=== PATIENT | female | born 1975 | race Caucasian/White ===

== ENCOUNTER → 2019-01-22 15:23 | Outpatient (CLI) | payer BC, SELFPAY ==
--- NOTE | 2019-01-22 15:54 | XR_ITS ---
XR chest 2V HISTORY: ITS.REASON: FATIGUE,DYSPNEA ORDERING PHYSICIAN: JIM Kelley PATIENT AGE: 43 years COMPARISON: None FINDINGS: The cardiomediastinal silhouette and pulmonary vascularity are within normal limits. There is a vague nodular opacity noted in the right lung base medially a 14 mm. On the lateral view there are at least 3 nodular opacities present over the anterior aspect of the chest 15 mm, 11 mm, and 8 mm. At least one of these is felt to be in the right middle lobe. Upper lobes are clear. No acute bony findings. IMPRESSION: At least 3 pulmonary nodules are present somewhat ill-defined. Metastatic disease would be considered. Other etiologies would include noncalcified granulomas. There are no previous chest x-rays available for review. Chest CT with contrast suggested.
[2019-01-22 16:23] LABS: Basophils % 0.3 % (0.1-2.0); Eosinophils # 0.1 K/mm3 (0.0-0.4); Eosinophils % 0.6 % (0.1-12.0); Hematocrit 38.8 % (37.0-47.0); Hemoglobin 12.1 g/dL (12.2-16.2); Lymphocytes # 2.8 K/mm3 (0.7-4.5); Lymphocytes % 24.8 % (10-50); Mean Corpuscular HGB Conc 31.1 g/dL (31.8-35.4); Mean Corpuscular Hemoglobin 27.3 pg (27.0-31.2); Mean Corpuscular Volume 87.6 fl (81-99); Mean Platelet Volume 6.8 fl (7.4-10.4); Monocytes # 1.9 K/mm3 (0.1-1.0); Monocytes % 17.5 % (1.7-9.3); Neutrophils # 6.3 K/mm3 (1.8-7.8); Neutrophils % 56.7 % (37.0-80.0); Platelet Count 415 K/mm3 (142-424); Red Blood Count 4.42 M/mm3 (4.20-5.40); Red Cell Distribution Width 12.9 % (11.5-17.5); White Blood Count 11.1 K/mm3 (4.8-10.8)
[2019-01-22 17:37] LABS: Alanine Aminotransferase 44 U/L (12-78); Alkaline Phosphatase 63 U/L (46-116); Anion Gap 15.6 mEq/L (5-15); Aspartate Amino Transferase 30 U/L (15-37); Bilirubin,Total 0.3 mg/dL (0.2-1.0); Blood Urea Nitrogen 17 mg/dL (7-18); Calcium 9.8 mg/dL (8.5-10.1); Carbon Dioxide 27 mmol/L (21.0-32.0); Chloride 101 mmol/L (98-107); Estimated Glomerular Filt Rate 109 ml/min (>60); GFR (African American) 131 ML/MIN (>60); Glucose 81 mg/dL (74-106); Potassium 4.6 mmoL/L (3.5-5.1); Sodium 139 mmol/L (136-145)
== END ==
PROVIDERS: PCP Internal Medicine Adolescent Medicine; Visit Provider Physician Assistant Medical
DX: R53.83 Other fatigue (principal); R06.00 Dyspnea, unspecified
CPT/HCPCS: 36415; 71046; 80053; 85025; 93005

== ENCOUNTER → 2019-01-27 10:09 | Outpatient (CLI) | payer BC, SELFPAY ==
--- NOTE | 2019-01-27 10:27 | CT_ITS ---
CT chest w con HISTORY: ITS.REASON: PULMONARY NODULE ORDERING PHYSICIAN: Peyman Mcdaniel MD PATIENT AGE: 43 years COMPARISON: 01/22/2019. TECHNIQUE: Axial images obtained following the administration of 75 mL of Optiray 350 . Sagittal, and coronal reformatted images are also generated and reviewed. All CT scans at the facility use one or more dose reduction, viz: automated exposure control, ma/kV adjustment per patient size (including targeted exams where dose is matched to indication, i.e. head), or iterative reconstruction technique. FINDINGS: PULMONARY ARTERIES:No pulmonary embolus evident. AORTA:No acute finding. No thoracic aortic aneurysm or dissection evident LUNGS:There are some right lung nodules. The largest in the anterior aspect of the right middle lobe is 8.7 mm and is calcified. There is another medial segment right middle lobe nodule measuring approximately millimeters and is also calcified. The smallest nodule at the anterior segment of the right upper lobe is 5 mm and calcified as well. There is no definite noncalcified nodule. Also noted is a punctate 4 mm, nodule in the right apex. The remainder of the lung soto are clear. PLEURAL SPACES:No significant effusion. No evidence of pneumothorax. HEART:Unremarkable. Normal heart size. No significant pericardial effusion. MEDIASTINAL AND HILAR STRUCTURES:No mediastinal or hilar mass evident. No dominant adenopathy. BONY STRUCTURES:No acute bony abnormalities apparent LYMPH NODES:No enlarged lymph nodes evident UPPER ABDOMEN:Unremarkable IMPRESSION: The multiple right lung nodules as discussed above are calcified indicating benign granulomas.
== END ==
PROVIDERS: PCP Internal Medicine Adolescent Medicine; Visit Provider Internal Medicine Adolescent Medicine
DX: R91.1 Solitary pulmonary nodule (principal)
CPT/HCPCS: 71260

== ENCOUNTER → 2019-02-05 07:10 | Outpatient (CLI) | payer BC, SELFPAY ==
[2019-02-05 14:20] LABS: Basophils % 0.4 % (0.1-2.0); Eosinophils # 0.1 K/mm3 (0.0-0.4); Eosinophils % 1.4 % (0.1-12.0); Hematocrit 39.9 % (37.0-47.0); Hemoglobin 12.3 g/dL (12.2-16.2); Lymphocytes # 2.1 K/mm3 (0.7-4.5); Lymphocytes % 29.6 % (10-50); Mean Corpuscular Hemoglobin 28.5 pg (27.0-31.2); Mean Platelet Volume 9.6 fl (7.4-10.4); Monocytes # 1.5 K/mm3 (0.1-1.0); Monocytes % 20.8 % (1.7-9.3); Neutrophils # 3.4 K/mm3 (1.8-7.8); Neutrophils % 47.8 % (37.0-80.0); Platelet Count 413 K/mm3 (142-424); Red Blood Count 4.34 M/mm3 (4.20-5.40); Red Cell Distribution Width 13.3 % (11.5-17.5); White Blood Count 7.2 K/mm3 (4.8-10.8)
[2019-02-05 14:24] LABS: MANUAL DIFFERENTIAL MANUAL DIFFERENTIAL (MANUAL DIFF)
[2019-02-05 14:52] LABS: Alanine Aminotransferase 43 U/L (12-78); Albumin Level 3.7 gm/dL (3.4-5.0); Alkaline Phosphatase 57 U/L (46-116); Anion Gap 13.1 mEq/L (5-15); Aspartate Amino Transferase 25 U/L (15-37); Bilirubin,Total 0.2 mg/dL (0.2-1.0); Blood Urea Nitrogen 23 mg/dL (7-18); Calcium 8.9 mg/dL (8.5-10.1); Carbon Dioxide 27 mmol/L (21.0-32.0); Chloride 105 mmol/L (98-107); Creatinine,Serum 0.74 mg/dL (0.55-1.02); Estimated Glomerular Filt Rate 85 ml/min (>60); GFR (African American) 103 ML/MIN (>60); Globulin 3.8 gm/dl (1.3-3.2); Glucose 87 mg/dL (74-106); Potassium 4.1 mmoL/L (3.5-5.1); Sodium 141 mmol/L (136-145); Total Protein,Serum 7.5 gm/dL (6.4-8.2)
[2019-02-05 16:37] LABS: Eosinophils % 1 % (0-3); Lymphocytes % 39 % (10-50); Monocytes % 20 % (2-9); Neutrophils % 40 % (42-76); Platelet Estimate Normal; Total Cells Counted 100
== END ==
PROVIDERS: PCP Internal Medicine Adolescent Medicine; Visit Provider Physician Assistant Medical
DX: R06.00 Dyspnea, unspecified (principal); R53.83 Other fatigue
CPT/HCPCS: 36415; 80053; 85007; 85025

== ENCOUNTER → 2019-10-24 10:44 | Outpatient (CLI) | payer BC, SELFPAY ==
--- NOTE | 2019-10-24 10:52 | MM_ITS ---
PROCEDURE: MM DIG SCREENING MAMM BI W/CAD Digital Breast Tomosynthesis Included CLINICAL INDICATION: SCREENING COMPARISON: PB MAMM SCREEN BILAT DIG PNL from 11/21/2013 PB MAMM SCREEN BILAT DIG PNL from 01/12/2015 DMSB DIG MAMM-SCREEN CANDIE W/CAD from 02/14/2017 TECHNIQUE: Standard CC and MLO images and 3D Tomosynthesis was obtained. R2 CAD reviewed. FINDINGS: Average fibroglandular tissue. Benign-appearing calcifications are present. No malignant appearing mass or malignant-appearing microcalcification. IMPRESSION: BI-RAD Category: 2 Benign Finding(s) FOLLOW-UP: 1YR 1 Year Follow-up (A letter has been sent to the patient regarding results of the study.) Dictated by: Antonio Fernandez MD 10/24/2019 18:04 Electronically signed by Antonio Fernandez MD in [place] 10/24/2019 18:04
== END ==
PROVIDERS: PCP Internal Medicine Adolescent Medicine; Visit Provider Internal Medicine Adolescent Medicine
DX: Z12.31 Encounter for screening mammogram for malignant neoplasm of breast (principal)
CPT/HCPCS: 77063; 77067

== ENCOUNTER → 2020-12-31 07:12 | Outpatient (CLI) | payer BC, SELFPAY ==
[2020-12-31 14:12] LABS: Basophils # 0.1 K/mm3 (0-0.2); Basophils % 1.5 % (0.1-2.0); Eosinophils # 0.1 K/mm3 (0.0-0.4); Eosinophils % 0.9 % (0.1-12.0); Hematocrit 37.4 % (37.0-47.0); Hemoglobin 11.8 g/dL (12.2-16.2); Lymphocytes # 2.3 K/mm3 (0.7-4.5); Lymphocytes % 35.3 % (10-50); Mean Corpuscular HGB Conc 31.5 g/dL (31.8-35.4); Mean Corpuscular Hemoglobin 28.8 pg (27.0-31.2); Mean Corpuscular Volume 91.3 fl (81-99); Monocytes # 1.3 K/mm3 (0.1-1.0); Monocytes % 20.3 % (1.7-9.3); Neutrophils # 2.7 K/mm3 (1.8-7.8); Neutrophils % 42.1 % (37.0-80.0); Platelet Count 324 K/mm3 (142-424); Red Cell Distribution Width 12.7 % (11.5-17.5); White Blood Count 6.5 K/mm3 (4.8-10.8)
[2020-12-31 14:25] LABS: MANUAL DIFFERENTIAL MANUAL DIFFERENTIAL (MANUAL DIFF)
[2020-12-31 14:32] LABS: Chloride 104 mmol/L (98-107); Potassium 4.3 mmoL/L (3.5-5.1); Sodium 139 mmol/L (136-145)
[2020-12-31 14:34] LABS: Lymphocytes % 39 % (10-50); Monocytes % 18 % (2-9); Neutrophils % 43 % (42-76); Total Cells Counted 100
[2020-12-31 14:35] LABS: Alanine Aminotransferase 19 U/L (12-78); Albumin Level 4.5 g/dl (3.5-5.0); Albumin/Globulin Ratio 1.4 (1.1-1.8); Alkaline Phosphatase 60 U/L (38-126); Anion Gap 10.3 mEq/L (5-15); Aspartate Amino Transferase 29 U/L (14-36); Bilirubin,Total 0.2 mg/dl (0.2-1.3); Blood Urea Nitrogen 16 mg/dl (7-17); Calcium 9.2 mg/dl (8.4-10.2); Carbon Dioxide 29 mmol/L (22.0-30.0); Estimated Glomerular Filt Rate 108 ml/min (>60); GFR (African American) 130 ML/MIN (>60); Globulin 3.3 g/dL (1.3-3.2); Glucose 80 mg/dl (74-100); Iron 74 ug/dL (37-170); Platelet Estimate Normal; RBC Morphology Normal; Total Protein,Serum 7.8 g/dl (6.3-8.2)
[2020-12-31 15:05] LABS: Thyroid Stimulating Hormone 1.23 uIU/mL (0.465-4.68)
[2020-12-31 15:08] LABS: 25-OH Vitamin D, Total 32.6 ng/mL (30-100)
[2020-12-31 15:09] LABS: Ferritin 19.2 ng/ml (6.24-137)
[2021-01-01 05:28] LABS: Prealbumin 18 mg/dL (12-34)
[2021-01-07 00:08] LABS: Vitamin B1 135.6 nmol/L (66.5-200.0)
[2021-01-11 05:19] LABS: Methylmalonic Acid 149 nmol/L (0-378)
== END ==
PROVIDERS: Visit Provider Physician Assistant Medical
DX: R53.83 Other fatigue (principal); R79.0 Abnormal level of blood mineral; E55.9 Vitamin D deficiency, unspecified
CPT/HCPCS: 36415; 80053; 82131; 82306; 82728; 82746; 83540; 84134; 84425; 84443; 85007; 85025

== ENCOUNTER → 2022-03-01 09:59 | Outpatient (CLI) | payer BC, SELFPAY ==
--- NOTE | 2022-03-01 10:05 | MM_ITS ---
PROCEDURE INFORMATION: Exam: MG Bilateral Screening 3D Mammography Exam date and time: 03/01/2022 10:01 AM Age: 47 years old Clinical indication: Screening examination. Strong family history of premenopausal breast carcinoma. TECHNIQUE: Imaging protocol: Bilateral Screening tomosynthesis and 2D mammography including computer-aided detection (CAD) when performed. COMPARISON: 1. MG MM DIG SCREENING MAMM BI W/CAD 10/24/2019 11:24 AM 2. MG DMSB DIG MAMM-SCREEN CANDIE W/CAD 02/14/2017 10:54 AM FINDINGS: MAMMOGRAPHY: Breast composition: There are scattered areas of fibroglandular density. Mass: No suspicious masses. Architectural distortion: No suspicious distortion. Calcifications: No suspicious calcifications. Asymmetric density: Questionable 1 cm asymmetry in the retroareolar left breast, best seen on MLO frame 24. Finding may represent summation artifact. Skin thickening: None. Axillary adenopathy: None. IMPRESSION: 1. Recommend left breast spot compression CC/MLO view and ultrasound for further evaluation of a questionable asymmetry in the retroareolar left breast. 2. No definite mammographic evidence of malignancy in the right breast. 3. Given the reported risk factors for this patient, a breast cancer risk assessment may prove useful for further evaluation. ASSESSMENT: BI-RADS Category 0: Incomplete- Need Additional Imaging Evaluation and/or Prior Mammograms for Comparison
== END ==
PROVIDERS: PCP Internal Medicine Adolescent Medicine; Visit Provider Nurse Practitioner Family
DX: Z12.31 Encounter for screening mammogram for malignant neoplasm of breast (principal)
CPT/HCPCS: 77063; 77067

== ENCOUNTER → 2022-03-13 15:29 | Outpatient (CLI) | payer BC, SELFPAY ==
--- NOTE | 2022-03-13 15:34 | MM_ITS ---
PROCEDURE INFORMATION: Exam: US Left Breast, Complete MG Left Diagnostic Breast Tomosynthesis Exam date and time: 03/13/2022 3:36 PM Age: 47 years old Clinical indication: Patient recalled on the basis of a screening mammogram for further evaluation; Left breast; asymmetry TECHNIQUE: Imaging protocol: Complete ultrasound of all four quadrants of the Left breast and the retroareolar regions, including ultrasound of the axilla when performed. Left Diagnostic tomosynthesis and 2D mammography including computer-aided detection (CAD) when performed. Unilateral or bilateral exam. COMPARISON: 1. MG MM DIG SCREENING MAMM BI W/CAD 03/01/2022 10:01 AM 2. MG MM DIG SCREENING MAMM BI W/CAD 10/24/2019 11:24 AM FINDINGS: MAMMOGRAPHY: Digital diagnostic spot compression views of the left breast demonstrate normal overlapping fibroglandular structures without persistent mass or asymmetry identified. ULTRASOUND: Sonographic images of the left breast including the retroareolar region, all 4 quadrants and the axilla do not demonstrate any solid or cystic masses. No architectural distortion or acoustical shadowing. No skin thickening or axillary adenopathy. IMPRESSION: No mammographic or sonographic evidence of malignancy. Annual bilateral mammographic screening is recommended unless otherwise clinically indicated. ASSESSMENT: BI-RADS Category 1: Negative
== END ==
PROVIDERS: PCP Internal Medicine Adolescent Medicine; Visit Provider Nurse Practitioner Family
DX: R92.8 Other abnormal and inconclusive findings on diagnostic imaging of breast (principal)
CPT/HCPCS: 76641; 77061; 77065; G0279

== ENCOUNTER → 2023-06-18 15:59 | Outpatient (CLI) | payer BC, SELFPAY ==
--- NOTE | 2023-06-18 16:00 | MM_ITS ---
PROCEDURE INFORMATION: Exam: MG Bilateral Screening 3D Mammography Exam date and time: 06/18/2023 4:00 PM Age: 48 years old Clinical indication: Screening examination TECHNIQUE: Imaging protocol: Bilateral Screening tomosynthesis and 2D mammography including computer-aided detection (CAD) when performed. COMPARISON: 1. MG MM DIG MAMM DX UNILAT LT CAD 03/13/2022 3:36 PM 2. MG MM DIG SCREENING MAMM BI W/CAD 03/01/2022 10:01 AM FINDINGS: MAMMOGRAPHY: Breast composition: There are scattered areas of fibroglandular density. Mass: None. Architectural distortion: None. Calcifications: No suspicious calcifications. Asymmetric density: None. Skin thickening: None. Axillary adenopathy: None. IMPRESSION: No mammographic evidence of malignancy. Annual screening is recommended unless otherwise clinically indicated. ASSESSMENT: BI-RADS Category 1: Negative
== END ==
PROVIDERS: PCP Family Medicine; Visit Provider Family Medicine
DX: Z12.31 Encounter for screening mammogram for malignant neoplasm of breast (principal)
CPT/HCPCS: 77063; 77067

== ENCOUNTER → 2023-06-27 23:30 | Outpatient (CLI) | payer BC, SELFPAY | LOC: LAB.DROPOF 23:31 | PROVIDERS: PCP Family Medicine; Visit Provider Family Medicine | DX: Z90.3 Acquired absence of stomach [part of] (principal); R71.8 Other abnormality of red blood cells; R74.01 Elevation of levels of liver transaminase levels; Z79.899 Other long term (current) drug therapy | CPT/HCPCS: 80053; 80061; 84443; 85007; 85025 ==

== ENCOUNTER 2023-10-19 16:43 | Outpatient (CLI) | payer BC, SELFPAY ==
[2023-10-19 16:33] LABS: Basophils # 0.1 K/mm3 (0-0.2); Basophils % 1.1 % (0.1-2.0); Eosinophils % 0.8 % (0.1-12.0); Hematocrit 38.8 % (37.0-47.0); Hemoglobin 12.4 g/dL (12.2-16.2); Lymphocytes # 2.1 K/mm3 (0.7-4.5); Lymphocytes % 37.2 % (10-50); Mean Corpuscular HGB Conc 31.9 g/dL (31.8-35.4); Mean Corpuscular Hemoglobin 30.5 pg (27.0-31.2); Mean Corpuscular Volume 95.6 fl (81-99); Mean Platelet Volume 9.3 fl (7.4-10.4); Monocytes # 1.3 K/mm3 (0.1-1.0); Monocytes % 22.7 % (1.7-9.3); Neutrophils # 2.2 K/mm3 (1.8-7.8); Neutrophils % 38.3 % (37.0-80.0); Platelet Count 283 K/mm3 (142-424); Red Blood Count 4.06 M/mm3 (4.20-5.40); Red Cell Distribution Width 13.3 % (11.5-17.5); White Blood Count 5.6 K/mm3 (4.8-10.8)
[2023-10-19 16:36] LABS: MANUAL DIFFERENTIAL MANUAL DIFFERENTIAL (MANUAL DIFF)
[2023-10-19 16:58] LABS: Alanine Aminotransferase 39 U/L (12-78); Albumin Level 4.6 g/dl (3.5-5.0); Albumin/Globulin Ratio 1.5 (1.1-1.8); Alkaline Phosphatase 54 U/L (38-126); Anion Gap 11.2 mEq/L (5-15); Aspartate Amino Transferase 45 U/L (14-36); Bilirubin,Total 0.4 mg/dl (0.2-1.3); Blood Urea Nitrogen 17 mg/dl (7-17); Calcium 9.4 mg/dl (8.4-10.2); Carbon Dioxide 27 mmol/L (22.0-30.0); Chloride 107 mmol/L (98-107); Chol/HDL Ratio 4.1 (1-3.5); Cholesterol 173 mg/dl (140-200); Estimated Glomerular Filt Rate 89 ml/min (>60); GFR (African American) 108 ML/MIN (>60); Globulin 3.1 g/dL (1.3-3.2); Glucose 86 mg/dl (74-100); HDL Cholesterol 42 mg/dl (40-60); Potassium 4.2 mmoL/L (3.5-5.1); Sodium 141 mmol/L (136-145); Total Protein,Serum 7.7 g/dl (6.3-8.2); Triglycerides 63 mg/dl (30-150); VLDL Cholesterol 13 mg/dL (0-40)
[2023-10-19 17:09] LABS: Direct LDL Cholesterol 86.32 mg/dL (100-129)
[2023-10-19 17:28] LABS: Thyroid Stimulating Hormone 0.59 uIU/mL (0.465-4.68)
[2023-10-19 18:24] LABS: Hemoglobin A1C 5.3 % (4.0-6.0)
[2023-10-19 19:01] LABS: Eosinophils % 1 % (0-3); Lymphocytes % 43 % (10-50); Monocytes % 13 % (2-9); Neutrophils % 42 % (42-76); Platelet Estimate Normal; RBC Morphology Normal; Total Cells Counted 100
== END 2023-10-19 23:59 ==
LOC: LAB.DROPOF 16:43
PROVIDERS: PCP Nurse Practitioner Family; Visit Provider Nurse Practitioner Family
DX: Z00.00 Encounter for general adult medical examination without abnormal findings (principal); Z79.899 Other long term (current) drug therapy
CPT/HCPCS: 80053; 80061; 82306; 83036; 84443; 85007; 85025

== ENCOUNTER 2024-03-13 12:29 | Outpatient (CLI) | payer BC, SELFPAY ==
--- NOTE | 2024-03-13 12:38 | XR_ITS ---
FINAL REPORT CLINICAL HISTORY: Right foot pain COMPARISON: None FINDINGS: RIGHT FOOT 3 views of the right foot were obtained. There is no acute fracture or dislocation. Visualized joint spaces are normally aligned. Soft tissues are unremarkable. IMPRESSION: No acute bony abnormality. Reviewed, Interpreted and Dictated by Sukumar Correia III, MD Transcribed by Winnie Cerna Authenticated and [facility]
== END 2024-03-13 23:59 | disposition home or self-care (01) ==
LOC: RAD 12:30
PROVIDERS: PCP Family Medicine; Visit Provider Nurse Practitioner Family
DX: M79.671 Pain in right foot (principal)
CPT/HCPCS: 73630

== ENCOUNTER 2024-07-14 14:57 | Outpatient (CLI) | payer BC, SELFPAY ==
--- NOTE | 2024-07-14 14:58 | MM_ITS ---
PROCEDURE INFORMATION: Exam: MG Bilateral Screening 3D Mammography Exam date and time: 07/14/2024 2:56 PM Age: 49 years old Clinical indication: Screening examination. TECHNIQUE: Imaging protocol: Bilateral Screening tomosynthesis and 2D mammography including computer-aided detection (CAD) when performed. Other technique: Original mislabeling of the left breast images was corrected on 07/17/2024. COMPARISON: 1. MG MM DIG SCREENING MAMM BI W/CAD 06/18/2023 4:00 PM 2. MG MM DIG MAMM DX UNILAT LT CAD 03/13/2022 3:36 PM FINDINGS: MAMMOGRAPHY: Breast composition: There are scattered areas of fibroglandular density. Mass: None. Architectural distortion: None. Calcifications: No suspicious calcifications. Asymmetric density: None. Skin thickening: None. Axillary adenopathy: None. IMPRESSION: No mammographic evidence of malignancy. Annual screening is recommended unless otherwise clinically indicated. ASSESSMENT: BI-RADS Category 1: Negative.
== END 2024-07-14 23:59 | disposition home or self-care (01) ==
LOC: RAD 14:58
PROVIDERS: PCP Family Medicine; Visit Provider Family Medicine
DX: Z12.31 Encounter for screening mammogram for malignant neoplasm of breast (principal)
CPT/HCPCS: 77063; 77067

== ENCOUNTER 2024-07-27 14:03 | Emergency (ER) | payer BC, SELFPAY ==
[2024-07-27 15:27] VITALS: BP 125/74; PULSE 71; RESP 17; TEMP 36.9; O2SAT 98; BMI 28.1
[2024-07-27 15:50] LABS: UTC Influenza A Antigen Negative (Negative); UTC Influenza B Antigen Negative (Negative); UTC Strep Screen (Rapid) Negative (Negative)
--- NOTE | 2024-07-27 15:59 | EXP.UTC ---
Discharge Plan Disposition Patient Disposition: Home, Self-Care Condition: Good Prescriptions Prescriptions: No Action Wegovy 2.4 mg/0.75 mL pen injector 2.4 mg SQ WEEKLY Patient Comments: INJECT 2.4 MG UNDER THE SKIN INTO THE APPROPRIATE AREA DIRECTED 1 (ONE) TIME PER WEEK. topiramate 25 mg tablet 25 mg PO DAILY Patient Comments: TAKE TWO TABLETS DAILY AT BEDTIME. cetirizine 10 mg tablet 10 mg PO DAILY PRN (Reason: ALLERGIES) Centrum Silver Women 8 mg iron-400 mcg-50 mcg tablet 1 tab PO DAILY paroxetine HCl 10 mg tablet 10 mg PO DAILY Patient Comments: TAKE ONE TABLET BY MOUTH ONCE DAILY trazodone 100 mg tablet 100 mg PO HSP PRN (Reason: Insomnia) Patient Comments: TAKE ONE TABLET BY MOUTH EVERY DAY NEEDED FOR insomnia AT bedtime Referrals Follow up/Referrals: Gabo Mo MD [Primary Care Provider] - See instructions Activity Restrictions/Add. Instructions Additional Instructions/Restrictions: *Monitor Temp, Over the counter Motrin or Tylenol as directed/as needed Tylenol every 4 hours and Motrin every 6 hours (as long as your family doctor has told you that you can take it) for fever or pain. and straight to ER if unable to lower temp less than 101.0 after medication given *Warm salt water gargles may help to soothe the throat *Throat Lozenges? *Warm fluids like tea with honey may help to soothe the throat? *Sleep elevated *Humidifier/Vaporizer Your throat swab was sent for culture. Those results are typically sent to your primary care. Be sure to follow up in 2-3 days with your family doctor/primary care physician if no improvement so they can review those result and treat if necessary. If you don?t have a primary care doctor, I recommend you get one but in the mean time, you will have to return to a walk in clinic Follow up IMMEDIATELY for new or worsening symptoms or no Noticeable improvement over the next 48-72 hours. 911 for difficulty breathing or swallowing Clinical Impressions Clinical Impression: Upper respiratory infection Instructions Patient Instructions: Sore Throat, DI for Nasal Congestion Print Language Print Language: Setswana Discharge ED Provider: Polly Iyer [facility] – [place], [place] HPI General Stated complaint: sore throat, ear pain Mode of Arrival: Ambulatory Source of Information: Patient Limitations: No Limitations Time Seen by Provider: 07/27/24 15:59 Description of Symptoms (Recalled from Triage Doc. by RN): PATIENT C/O EAR PAIN, SORE THROAT, FEELING TIRED, AND BODY ACHES X 2 DAYS HEENT Symptoms (Recalled from RN notes): Yes Resp Symptoms (Recalled from RN notes): No Skin Symptoms (Recalled from RN notes): No MS Symptoms (Recalled from RN notes): No Functional Status (Recalled from RN notes): WNL History of Present Illness Provider Complaint: Patient states that she started feeling bad on Sunday States that she has been having pain and pressure in her ears, sore throat, body aches chills and over all not feeling well States today she was still not feeling any better worried that she may have strep throat or COVID Related Data Home Medications ?Medication ?Instructions ?Recorded ?Confirmed cetirizine 10 mg tablet 10 mg PO DAILY PRN ALLERGIES 05/21/23 07/27/24 [id number] 8 mg-folic 400 1 tab PO DAILY 05/21/23 07/27/24 mcg-K 50 mcg-lutein 300 mcg tablet (Centrum Silver Women) semaglutide (weight loss) 2.4 2.4 mg SQ WEEKLY Weight loss 05/21/23 07/27/24 mg/0.75 mL subcutaneous pen injector (Wegovy) topiramate 25 mg tablet 25 mg PO DAILY 05/21/23 07/27/24 paroxetine HCl 10 mg tablet 10 mg PO DAILY 07/27/24 07/27/24 trazodone 100 mg tablet 100 mg PO HSP PRN Insomnia 07/27/24 07/27/24 Allergies Allergy/AdvReac Type Severity Reaction Status Date / Time No Known Allergies Allergy Verified 03/13/24 11:28 Worker's Comp Is this a Worker's Comp case?: No [facility] Disclaimer: The information contained in this section may have been updated after the patient was seen, as this information can be updated by other users. Medical History Grade 2 ankle sprain Abrasion Acute bronchitis Surgical History History of cholecystectomy History of placement of ear tubes H/O sinus surgery H/O gastric sleeve Family History Mother Cancer Father Coronary artery disease Heart attack Social History Smoking Status: Never smoker second hand exposure: No alcohol intake: current alcohol intake frequency: holidays/special occasions only counseling provided: none substance use type: denies use current occupational status: employed Travel in the last 8 weeks: Inside the [place] household members: family housing: house caffeine: Yes Have you lived/traveled outside [place] in past 30 days?: No Contact w/someone who lives/traveled outside [place] past 30 days?: No Exposure to someone with infectious disease in past 14 days?: No Do you have a fever (greater than 100.4 F or 38 C)?: No Have you tested positive for COVID-19: No Exposed to someone with COVID-19 in past 14 days?: No Do you have a sore throat?: No Do you have a cough?: No Do you have any weakness?: No Do you have any diarrhea?: No Are you experiencing any unusual bleeding?: No Do you have any muscle aches/pain?: No Do you have any abdominal pain?: No Are you experiencing loss of taste or smell?: No ROS Obtained: Yes All systems reviewed & no additional complaints except as documented and Yes Systems reviewed as appropriate & no additional complaints except as documented Constitutional Constitutional: Reports system reviewed and no additional complaints, except as documented, Reports as per HPI, Reports body ache, Reports chills and Reports fatigue ENT Ears, Nose, Mouth, and Throat: Reports system reviewed and no additional complaints, except as documented, Reports otalgia, Reports nasal congestion and Reports sore throat Cardiovascular Cardiovascular: Reports system reviewed and no additional complaints, except as documented and Reports as per HPI Respiratory Respiratory: Reports system reviewed and no additional complaints, except as documented and Reports as per HPI Gastrointestinal Gastrointestingal: Reports system reviewed and no additional complaints, except as documented and as per HPI Endocrine Endocrine: Reports fatigue Physical Exam General General appearance: alert and in no apparent distress ENT ENT exam: Present mucous membranes moist and TM's normal bilaterally Expanded ENT Exam Nose exam: Absent sinus tenderness Throat exam: Present normal inspection Chest Chest inspection: Present normal inspection and symmetric chest wall rise; Absent tenderness Respiratory Respiratory exam: Present normal lung sounds bilaterally; Absent respiratory distress or wheezes Cardiovascular Cardiovascular exam: Present regular rate, normal rhythm and normal heart sounds Neurological Exam Neurological exam: Present alert, oriented X3 and normal gait Medical Decision Making Medical Records Screening: Per USPSTF and CDC recommendations, given the prevalence of disease in our region, it is our hospital?s policy to screen for HIV and viral Hepatitis for all patients aged 18 and over and those with ongoing risk factors. Veto Inquiry Pt receiving controlled substance: No Veto was queried for this patient: No Vital Signs: 07/27/24 15:27 Temperature 98.5 F Temperature Source Oral Pulse Rate [Left Brachial] 71 Respiratory Rate 17 Blood Pressure [Left Arm] 125/74 Blood Pressure Mean [Left Arm] 91 Blood Pressure Source [Left Arm] Automatic Cuff Blood Pressure Position [Left Arm] Sitting 02 Sat by Pulse Oximetry 98 Oxygen Delivery Method Room Air Lab Data Lab results reviewed: Yes I reviewed the patient's lab results. Lab Results 07/27/24 15:27: Influenza Type A Ag Negative, Influenza Type B Ag Negative, Strep Scn Rapid Clinic Negative Orders (Tests/Meds): ORDERS Category Date Time Status Strep Screen Confirmation Stat Micro 07/27/24 15:27 Received
[2024-07-27 16:08] VITALS: BP 125/74; PULSE 71; RESP 17; TEMP 36.9; O2SAT 98
== END 2024-07-27 16:09 | disposition home or self-care (01) ==
PROVIDERS: Emergency Provider Nurse Practitioner Family; PCP Family Medicine
DX: J06.9 Acute upper respiratory infection, unspecified (principal)
CPT/HCPCS: 87804; 87880; 99213; G0381

== ENCOUNTER 2024-08-26 22:56 | Emergency (ER) | payer BC, SELFPAY ==
[2024-08-26 22:55] VITALS: BP 146/80; PULSE 80; RESP 18; TEMP 36.7; O2SAT 97; BMI 24.2
--- NOTE | 2024-08-26 23:14 | ED_ITS ---
Discharge Plan Disposition Patient Disposition: Home, Self-Care Condition: Good Prescriptions Prescriptions: No Action Wegovy 2.4 mg/0.75 mL pen injector 2.4 mg SQ WEEKLY Patient Comments: INJECT 2.4 MG UNDER THE SKIN INTO THE APPROPRIATE AREA DIRECTED 1 (ONE) TIME PER WEEK. topiramate 25 mg tablet 25 mg PO DAILY Patient Comments: TAKE TWO TABLETS DAILY AT BEDTIME. cetirizine 10 mg tablet 10 mg PO DAILY PRN (Reason: ALLERGIES) Centrum Silver Women 8 mg iron-400 mcg-50 mcg tablet 1 tab PO DAILY paroxetine HCl 10 mg tablet 10 mg PO DAILY Patient Comments: TAKE ONE TABLET BY MOUTH ONCE DAILY trazodone 100 mg tablet 100 mg PO HSP PRN (Reason: Insomnia) Patient Comments: TAKE ONE TABLET BY MOUTH EVERY DAY NEEDED FOR insomnia AT bedtime Activity Restrictions/Add. Instructions Additional Instructions/Restrictions: Call your family doctor to establish care for this visit to the emergency department and schedule follow-up within 48 hours to ensure improvement. If you have any worsening of your condition or any other concerning signs or symptoms, return to the emergency department or your primary care doctor for further evaluation. Take Tylenol 1000 mg every 6 hours (4 times daily) and ibuprofen 400 mg every 6 hours (4 times daily) as needed with food and water to prevent GI upset and kidney damage. Clinical Impressions Clinical Impression: Facial laceration Print Language Print Language: [place] Islander Discharge ED Provider: Salvatore Gee General Adult HPI General Chief complaint: Fall Stated complaint: fall Time Seen by Provider: 08/26/24 23:00 Mode of Arrival: EMS Source of Information: Patient Limitations: No Limitations Description of Symptoms (Recalled from ER Triage Doc. by RN): Patient presents to ED via [facility] after a fall at home. Patient was walking upstairs and fell and hit head head. Patient denies LOC. Patient rates pain 6/10. History of Present Illness HPI narrative: Please note that above description of symptoms, in this electronic medical record under categorization of recalled from ER triage doctor by RN are reflective of an initial nursing assessment, however, is not reflective of my full history and physical exam that was personally taken and clarified. Consequentially, this preceding description of symptoms, which may include the patient's categorized chief complaint in the EMR, do not reflect my personal clinical impression, and the ultimate description of history of present illness and patient stated complaints should be deferred to this section of the note. Unless stated otherwise or congruent with this section of the note, additional signs, symptoms, or incongruence should be interpreted as inaccurate with my clinical impression. Related Data Home Medications ?Medication ?Instructions ?Recorded ?Confirmed cetirizine 10 mg tablet 10 mg PO DAILY PRN ALLERGIES 05/21/23 07/27/24 ulfyofwe-bybm-kksa 8 mg-folic 400 1 tab PO DAILY 05/21/23 07/27/24 mcg-K 50 mcg-lutein 300 mcg tablet (Centrum Silver Women) semaglutide (weight loss) 2.4 2.4 mg SQ WEEKLY Weight loss 05/21/23 07/27/24 mg/0.75 mL subcutaneous pen injector ([employer]) topiramate 25 mg tablet 25 mg PO DAILY 05/21/23 07/27/24 paroxetine HCl 10 mg tablet 10 mg PO DAILY 07/27/24 07/27/24 trazodone 100 mg tablet 100 mg PO HSP PRN Insomnia 07/27/24 07/27/24 Allergies Allergy/AdvReac Type Severity Reaction Status Date / Time No Known Allergies Allergy Verified 03/13/24 11:28 [facility] Disclaimer: The information contained in this section may have been updated after the patient was seen, as this information can be updated by other users. Medical History Grade 2 ankle sprain Abrasion Acute bronchitis Surgical History History of cholecystectomy History of placement of ear tubes H/O sinus surgery H/O gastric sleeve Family History Mother Cancer Father Coronary artery disease Heart attack Social History Smoking Status: Never smoker second hand exposure: No alcohol intake: current alcohol intake frequency: holidays/special occasions only counseling provided: none substance use type: denies use current occupational status: employed Travel in the last 8 weeks: Inside the [place] household members: family housing: house caffeine: Yes Other Medical History Have you received the Flu Vaccine for this season: Yes Have you received the Pneumonia Vaccine: No ROS Obtained: Yes All systems reviewed & no additional complaints except as documented Physical Exam General General appearance: alert Head Head exam: atraumatic and normocephalic Eye Eye exam: Present normal appearance, PERRL and EOMI Neck Neck exam: Present normal inspection, full ROM and trachea midline Respiratory Respiratory exam: Absent respiratory distress, wheezes, stridor, accessory muscle use or prolonged expiratory phase Cardiovascular Cardiovascular exam: Present other (Pulses equal symmetric in upper and lower extremities) Abdominal Exam Abdominal exam: Present soft; Absent distention, tenderness or pulsatile mass Extremities Exam Extremities exam: Absent edema Neurological Exam Neurological exam: Present alert, oriented X3 and CN II-XII intact; Absent motor sensory deficit Skin Skin exam: Present warm and dry; Absent diaphoresis or erythema Medical Decision Making Medical Records Medical records reviewed: Yes I reviewed the patient's medical records. Screening: Per USPSTF and CDC recommendations, given the prevalence of disease in our region, it is our hospital?s policy to screen for HIV and viral Hepatitis for all patients aged 18 and over and those with ongoing risk factors. Veto Inquiry Pt receiving controlled substance: No Veto was queried for this patient: No Vital Signs: 08/26/24 22:55 08/26/24 23:16 Temperature 98.0 F 98.0 F Temperature Source Oral Oral Pulse Rate 84 Pulse Rate [Right Brachial] 80 Respiratory Rate 18 18 Blood Pressure 141/91 H Blood Pressure [Right Arm] 146/80 H Blood Pressure Mean [Right Arm] 102 Blood Pressure Source Automatic Cuff Blood Pressure Source [Right Arm] Automatic Cuff Blood Pressure Position Supine Blood Pressure Position [Right Arm] Sitting 02 Sat by Pulse Oximetry 97 Oxygen Delivery Method Room Air Room Air Medical Decision Narrative: This is a 49-year-old female no relevant medical history presenting with fall. Patient was walking up the steps and tripped, fell forward, hit her forehead on the steps. Did not lose consciousness. Did not fall down the rest of the steps or sustain any other trauma. Came in with EMS. Patient states that the pain is moderate in intensity, just above her eyebrow. No vision changes, eye pain, headache, neck pain, back pain, dental trauma, or any other concerns. History was obtained via conversation with patient and EMS. On arrival, patient hemodynamically stable, alert, [oriented x4, ][appropriate, ]GCS [15], moving all extremities spontaneously, pupils equal and reactive to light. Full physical exam performed and significant for patient has 2 cm laceration overlying her right eyebrow partially transecting right eyebrow. Upon being washed out, involves subcutaneous layer, but does not violate all the way through subcutaneous layer. Clean, linear. She also has a superficial laceration to not amenable to closure just medial to this about 0.5 cm. Differential includes laceration, fracture, intracranial bleed, cervical spine injury, among others. Upon further questioning and examination, patient Nexus C-spine negative, [place] CT head negative. C-collar was cleared. Because she has no other indications for imaging, imaging of the head was considered, but not deemed necessary. Labs were considered, but not deemed necessary either. She has no bony tenderness, step-offs, Dawkins sign, depressed or basilar skull fracture findings, or any other concerns on physical exam. Laceration was closed, see laceration repair note. Because patient at baseline without signs or symptoms of clinical decompensation, deemed appropriate for discharge. I discussed my clinical impression with patient[] and answered all questions. At this time, the evidence for any other entities in the differential is insufficient to warrant any further testing or ED observation. This was explained as well. Advisory was given that persistent or worsening symptoms require further evaluation. I confirmed the understanding of this discussion. Labor Arbitrator disclaimer Much of this encounter note is an electronic molded frames assembler spoken language to printed text. Electronic molded frames assembler of the spoken language may permit errors. Although I have reviewed the note, some errors may still exist. Procedures Laceration Laceration 1: Site: face Side (If applicable): right Size (cm): 2 Description: linear Depth: simple, single layer Local Anesthetic: lidocaine 1% Amount of anesthesia used (mL): 8 Pre-repair: wound explored, irrigated extensively and deep structures intact Skin layer closed with: vicryl Size (cm): 4-0 Number of sutures: 4 Technique: simple, interrupted Critical Care Critical Care Time Critical Care Time: No
[2024-08-26 23:16] VITALS: BP 141/91; PULSE 84; RESP 18; TEMP 36.7; O2SAT 97
== END 2024-08-26 23:19 | disposition home or self-care (01) ==
LOC: ER 23:19
PROVIDERS: Emergency Provider Emergency Medicine
DX: S01.81XA Laceration without foreign body of other part of head, initial encounter (principal); G50.1 Atypical facial pain; W01.198A Fall on same level from slipping, tripping and stumbling with subsequent striking against other object, initial encounter; Y93.89 Activity, other specified; Y92.008 Other place in unspecified non-institutional (private) residence as the place of occurrence of the external cause
CPT/HCPCS: 99283

== ENCOUNTER 2024-10-20 20:25 | Outpatient (CLI) | payer BC, SELFPAY ==
[2024-10-20 20:40] LABS: Basophils # 0.1 K/mm3 (0-0.2); Basophils % 0.8 % (0.1-2.0); Eosinophils % 0.3 % (0.1-12.0); Hematocrit 36.8 % (37.0-47.0); Hemoglobin 11.7 g/dL (12.2-16.2); Lymphocytes # 2.2 K/mm3 (0.7-4.5); Lymphocytes % 33.4 % (10-50); Mean Corpuscular HGB Conc 31.8 g/dL (31.8-35.4); Mean Corpuscular Hemoglobin 29.6 pg (27.0-31.2); Mean Corpuscular Volume 93.2 fl (81-99); Mean Platelet Volume 9.8 fl (7.4-10.4); Monocytes # 1.8 K/mm3 (0.1-1.0); Monocytes % 27.3 % (1.7-9.3); Neutrophils # 2.4 K/mm3 (1.8-7.8); Neutrophils % 37.4 % (37.0-80.0); Platelet Count 291 K/mm3 (142-424); Red Blood Count 3.95 M/mm3 (4.20-5.40); Red Cell Distribution Width 13.2 % (11.5-17.5); White Blood Count 6.5 K/mm3 (4.8-10.8)
[2024-10-20 20:55] LABS: MANUAL DIFFERENTIAL MANUAL DIFFERENTIAL (MANUAL DIFF)
[2024-10-20 21:10] LABS: Iron 101 ug/dL (37-170)
[2024-10-20 21:20] LABS: Total Iron Binding Capacity 371 ug/dL (265-497)
[2024-10-20 21:53] LABS: HIV Combo NEGATIVE (Negative)
[2024-10-20 22:00] LABS: Hepatitis C Ab Qual. W/ RFX NEGATIVE (Negative)
[2024-10-20 22:06] LABS: Lymphocytes % 46 % (10-50); Monocytes % 10 % (2-9); Neutrophils % 42 % (42-76); Total Cells Counted 100
[2024-10-20 22:07] LABS: Platelet Estimate Normal; RBC Morphology Normal
[2024-10-20 23:50] LABS: Vitamin B12 959 pg/mL (239-931)
[2024-10-22 16:49] LABS: Erythropoietin 5.7 mIU/mL (2.6-18.5)
== END 2024-10-20 23:59 | disposition home or self-care (01) ==
LOC: LAB.DROPOF 20:26
PROVIDERS: PCP Family Medicine; Visit Provider Family Medicine
DX: D64.9 Anemia, unspecified (principal); Z11.4 Encounter for screening for human immunodeficiency virus [HIV]; Z11.59 Encounter for screening for other viral diseases
CPT/HCPCS: 82607; 82668; 82746; 83540; 83550; 85007; 85025; 85027; 86803; 87389

== ENCOUNTER 2024-10-30 09:00 | Outpatient (RCR) | payer BC, SELFPAY | END 2024-10-30 23:59 | disposition home or self-care (01) | LOC: PT 09:00 | PROVIDERS: PCP Family Medicine; Visit Provider Student in an Organized Health Care Education/Training Program | DX: S42.251G Displaced fracture of greater tuberosity of right humerus, subsequent encounter for fracture with delayed healing (principal) | CPT/HCPCS: 97014; 97110; 97140; 97163; 97530; G0283 ==

== ENCOUNTER 2024-12-02 08:00 | Outpatient (RCR) | payer BC, SELFPAY | END 2024-12-02 23:59 | disposition home or self-care (01) | LOC: PT 08:00 | PROVIDERS: PCP Family Medicine; Visit Provider Student in an Organized Health Care Education/Training Program | DX: S42.251G Displaced fracture of greater tuberosity of right humerus, subsequent encounter for fracture with delayed healing (principal) | CPT/HCPCS: 97014; 97110; 97140; 97164; 97530; G0283 ==

== ENCOUNTER 2025-01-08 07:00 | Outpatient (RCR) | payer BC, SELFPAY | END 2025-01-20 09:17 | disposition home or self-care (01) | LOC: PT.CARL 07:00 | PROVIDERS: PCP Family Medicine; Visit Provider Student in an Organized Health Care Education/Training Program | DX: S42.251G Displaced fracture of greater tuberosity of right humerus, subsequent encounter for fracture with delayed healing (principal); X58.XXXD Exposure to other specified factors, subsequent encounter | CPT/HCPCS: 20560; 97014; 97035; 97110; 97140; 97164; 97530; G0283 ==

== ENCOUNTER 2025-07-27 07:53 | Outpatient (CLI) | payer BC, SELFPAY ==
--- OUTSIDE RECORDS SUMMARY | 2025-07-06 10:00 | XMS_ITS | Encounter Summary ---
Author Organization [facility] Address [address] [place] [address] Care Team Providers Care Rag Grader Name Role Phone Gabo Mo MD Primary Care Provider [phone] Encounter Details Date Type Department Care Team (Late st Contact Info) Description 07/06/2025 10:00 AM EST Telemedicine [facility] [address] [place] [address] Carmen Dumont, MAIL S[employer]IV[employer] [address] [place], [place] [id number] Overweight (BMI 25.0-29.9) (Primary Dx); Nutritional counseling Social History Tobacco Use Types Packs/Day Years Used Date Smoking Tobacco: Never Passive Smoke Exposure: Never Smokeless Tobacco: Never Alcohol Use Standard Drinks/Week Comments Yes 0 (1 standard drink = 0.6 oz pur e alcohol) occ Comments No Sex and Gender Information Value Date Recorded Sex Assigned at Female 01/01/2025 11:36 AM EDT Legal Sex Female 12:13 PM EDT Gender Identity Not on file Sexual Orientation Not on file documented as of this encounter Last Filed Vital Signs Vital Sign Reading Time Taken Comments Blood Pressure 108/72 07/06/2025 10:00 AM EST Pulse 79 07/06/2025 10:00 AM EST Temperature - - Respiratory Rate - - Oxygen Saturation 99% 07/06/2025 10:00 AM EST Inhaled Oxygen Concentration - - Weight 73 kg (161 lb) 07/06/2025 10:00 AM EST Height 162.6 cm (5' 4 ) 07/06/2025 10:00 AM EST Body Mass Index 27.64 07/06/2025 10:00 AM EST documented in this encounter Progress Notes * TimCarmen wynne Hayden, MAIL SORTER AND DELIVERY - 07/06/2025 10:00 AM EST Images from the original note were not included. Office Note Date: 07/06/2025 Patient Name: Shante Adam : 1975 Mode of Visit: Video Location of patient: -WORK- Location of provider: +[facility]+ You have chosen to receive care through a telehealth visit. The patient has signed the video visit consent form. The visit included audio and video interaction. No technical issues occurred during this visit. Subjective Subjective Chief Complaint Obesity Management follow-up Subjective History of Present Illness The patient is a 50-year-old female who presents via virtual visit for follow-up on medical weight management. Patient is satisfied with weight loss progress. Appetite is moderately controlled. Reports no side effects of prescribed medications today. She underwent gastric sleeve surgery in 02/2019, with a presurgery weight of 243 pounds. Her initial weight upon starting medical weight management was 219 pounds. Currently, she is in the maintenance phase with a BMI of 27.6 with her last office visit occurring 3 months ago. Her treatment goal is to achieve a weight of less than 162 pounds with a normal body fat percentage. Her last lab work wasconducted in 02/2025 and reviewed during her previous office visit. She reports a stable weight of 161 pounds, with minor fluctuations of approximately 3 pounds over the past 3 months. She has not engaged in physical exercise for the past month due to personal circumstances and weather conditions. However, she has recently committed to participating in five 5K runs organized by the [employer] throughout 07/2025. She does not maintain a food journal but recalls her dietary intake from the previous day, which included protein coffee, a breakfast casserole with scrambled eggs, hash brown potatoes, and shredded cheese, and a weight loss soup containing black beans, shredded chicken, Pollo-Vicky seasoning, [place] Islander corn, and vegetables. She consumes 6 to 7 bottles of water daily, in addition to her morning coffee. She reports no changes in her medication regimen or any issues with Wegovy or topiramate. She has observed a resurgence of sweet cravings, which she attributes to her lack of exercise and the seasonal availability of her 's jam cakes. She is making efforts to resist these cravings. She reports satisfactory sleep quality, averaging 7 to 8 hours per night. Her current medications include Wegovy 2.4 mg and topiramate at bedtime. Review of Systems Constitutional: Negative for appetite change and fatigue. Eyes: Negative for visual disturbance. Cardiovascular: Negative for chest pain and palpitations. Gastrointestinal: Negative for constipation and indigestion. Neurological: Negative for light-headedness. Psychiatric/Behavioral: Positive for stress. Negative for sleep disturbance. Objective Start weight MWM: 219.8lb pounds. Total weight loss: -58 pounds/-26% Change in weight since last visit: 0 Body mass index is 27.64 kg/m??. Measurements (in inches) BP 108/72 Pulse 79 Ht 162.6 cm (64 ) Wt 73 kg (161 lb) SpO2 99% BMI 27.64 kg/m?? Result Review : Assessment and Plan Diagnoses and all orders for this visit: 1. Overweight (BMI 25.0-29.9) (Primary) - Semaglutide-Weight Management (Wegovy) 2.4 MG/0.75ML solution auto-injector; Inject 0.75 mL underthe skin into the appropriate area as directed 1 (One) Time Per Week. Dispense: 9 mL; Refill: 0 2. Nutritional counseling Assessment & Plan 1. Medical weight management: - Chronic obesity, stable with treatment. History of class 3 severe obesity with co-existing hyperlipidemia. BMI is now 27.6 (overweight). Treatment goal to maintain around 162lb, improve muscle mass. - She is currently in the maintenance phase of her weight management program. - No issues with current medications, Wegovy 2.4 mg and topiramate at bedtime. She has experienced some sweet cravings, which may be due to a lack of exercise and seasonal factors. - The importance of maintaining a food journal was emphasized to help manage her diet effectively. She is advised to gradually reintroduce exercise into her routine to prevent potential injuries. - A prescription refill for Wegovy 2.4 mg will be sent to pharmacy as a 90-day supply. If her weight increases by more than 7 pounds from her lowest recorded weight, consideration will be given to adjusting her medication regimen. Follow-up: The patient will follow up in 10/2025. Follow Up Return in about 3 months (around 10/04/2025) for Next scheduled follow up. Patient was given instructions and counseling regarding her condition or for health maintenance advice. Please see specific information pulled into the AVS if appropriate. Patient or patient customer loyalty representative verbalized consent for the use of Ambient Listening during the visit with Carmen Dumont APRN for chart documentation. 07/06/2025 11:16 EST Carmen Dumont APRN documented in this encounter Plan of Treatment Not on file documented as of this encounter Visit Diagnoses Diagnosis Overweight (BMI 25.0-29.9)- Primary Overweight Nutritional counseling documented in this encounter Care Teams Rag Grader Relationship Specialty Start Date End Date Gabo Mo MD [address] [place] [address] [place] [address] PCP - General Family Medicine 01/08/25 documented as of this encounter
--- OUTSIDE RECORDS SUMMARY | 2025-07-27 07:57 | XMS_ITS | Data Portability ---
Author Organization [place] [employer] [facility] Address [address] [place] [address] Care Team Providers Care Transfer Professor Name Role Phone JOSELUIS HEDRICK Primary Care Provider [phone] Assessment No assessment recorded. Plan of Treatment Reminders Order Date Submit Date Provider Last Modified By Organization Details Last Modified Time Details Appointments None recorded. Lab None recorded. Referral None recorded. Procedures None recorded. Surgeries None recorded. Imaging None recorded. Medication Orders amoxicillin 875 mg-potassiu m clavulanate 125 mg tablet 2024 025 [facility], [address] [place] [address], [id number], 5 12:14:48 paroxetine 10 mg tablet 2024 025 [facility], [address] [place] [address], [id number], 5 16:07:17 trazodone 100 mg tablet 2024 025 [facility], [address] [place] [address], [id number], 5 17:38:34 paroxetine 10 mg tablet 2023 024 [facility], [address] [place] [address], [id number], 4 14:27:46 trazodone 100 mg tablet 2023 024 [facility], [address] [place] [address], [id number], 5 16:48:00 Brisdelle 7.5 mg capsule 2023 024 [facility], [address] [place] [address], [id number], 4 14:27:38 Patient TargetsNo targets recorded. Patient InstructionsNo instructions recorded. Reason for Referral None Reported. Results Created Date Observation Date Name Description Value Unit Range Abnormal Flag Note LastModifiedBy Organization Detail LastModifiedTime 04/26/2004/26/2024 rapid flu (A+B) Flu A negati ve Not Available [address], [address], 04/26/2024 09:22:25 04/26/20 24 04/26/2024 rapid flu (A+B) Flu B negati ve Not Available [address], [address], 04/26/2024 09:22:25 04/26/20 24 04/26/2024 rapid strep group A, throa t Strep negati ve Not Available [address], [address], 04/26/2024 09:11:19 04/26/20 24 04/26/2024 rapid SARS CoV 2 Ag, QL, IA, upper respi rator y speci men SARS CoV Ag negati ve Not Available [address], [address], 04/26/2024 09:11:20 Result Notes None recorded. Problems Name Problem SNOMED Code Status Onset Date Resolution Date Notes Provider Name and Address Organization Details Recorded Time Acute sinusiti s 92898309 Completed 201808/30/2018 Problem Code: J01.90; Problem Code Type: ICD-10; Jazzmine Galo APRN [address] [place] [address], [address] , [employer] 5 11:10:07 Vitamin B deficien cy 71641551 Active 2018 Problem Code: E53.9; Problem Code Type: ICD-10; Not Available [facility] 2 21:27:42 Vitamin D deficien cy 51380451 Active 2018 Problem Code: E55.9; Problem Code Type: ICD-10; Not Available [facility] 2 21:27:42 Acute non-supp urative serous otitis media 565797024 Active 2018 Problem Code: H65.02; Problem Code Type: ICD-10; Not Available [facility] 2 21:27:43 Body mass index 30+ - obesity 246608482 Active 2018 Problem Code: Z68.37; Problem Code Type: ICD-10; Not Available [facility] 2 21:27:43 Pain in throat 410643562 Active 2023 Marissa cody, [employer] 4 09:11:15 Insomnia 790079316 Active 2024 Jazzmine Galo APRN [address] [place] [address], [address] , [employer] 5 17:12:56 Body mass index 25-29 - overweig ht 050762375 Active 2024 Jazzmine Galo APRN [address] [place], [address] , [employer] 5 17:13:02 Acute sinusiti s 49116797 Active 2024 Problem Code: J01.90; Problem Code Type: ICD-10; Jazzmine Galo APRN [address] [place] [address], [address] , [employer] 11:10:07 Problem Notes None recorded. Procedures Surgical History Date Name Laterality Status Provider Name and Address Organization Details Recorded Time 06/18/20 23 Most Recent Mammogram completed GLORIA WYNN [facility] 12/23/2024 15:29:19 08/13/19 19 cholecystectomy completed Not Available [facility] 04/11/2022 22:56:05 08/13/19 19 section completed Not Available [facility] 04/11/2022 22:56:05 08/13/19 19 tympanostomy completed Not Available [facility] 04/11/2022 22:56:05 Imaging Results None recorded. Procedure Notes None recorded. Medical Equipment None Reported. Allergies Allergen ID Allergen Name Allergen Category Reaction Reaction Severity Criticality Documentation Date Start Date Code Code System Note Provider Name and Address Organization Details Recorded Time 44659 Non-stero idal anti-infl ammatory agent (substanc e) medicatio n Not available Not available Not available 04/11/2022 08178 5008 SNOMED unabl e to have after weigh t loss surge ry Aller gyCod e: ''; Aller gyNam e: 'NSAI DS (Non- Stero idal Anti- Infla mmato ry Drug) '; Aller gyCon ceptT ype: ''; Not Available [facility] 22:58:36 Medications Name Sig Start Date Stop Date Status Note LastModified by Organization Details LastModified Time cyclobenzap rine 10 mg tablet take 1/2 tab po q HS prn back pain 05/08 completed Not Available Not Available Not Available fluconazole 100 mg tablet 06/21 completed Not Available Not Available Not Available paroxetine 10 mg tablet TAKE ONE TABLET BY MOUTH EVERY DAY active Not Available Not Available No t Available azithromyci n 250 mg tablet TAKE 2 TABLETS BY MOUTH ON DAY 1, THEN TAKE 1 TABLET DAILY ON DAYS 2-5 04/26 completed Not Available Not Available Not Available ibuprofen 800 mg tablet TAKE 1 TABLET BY MOUTH EVERY 8 HOURS NEEDED FOR MILD PAIN. active Not Available Not Available No t Available hydrocodone 5 mg-acetamin ophen 325 mg tablet 12/23 completed Not Available Not Available Not Available medroxyprog esterone 5 mg tablet Take 1 tablet(s) by mouth daily for 10 days 04/03/ 2019 05/06 /2019 completed Not Available Not Available Not Available topiramate 25 mg tablet TAKE 2 TABLETS BY MOUTH AT BEDTIME active Not Available Not Available No t Available prednisone 10 mg tablets in a dose pack 06/21 completed Not Available Not Available Not Available amoxicillin 875 mg tablet Take 1 tablet every 12 hours by oral route with meals for 7 days. 06/08 completed Not Available Not Available Not Available estradiol 0.025 mg/24 hr weekly transdermal patch apply ONE PATCH TO SKIN WEEKLY 06/24 completed Not Available Not Available Not Available trazodone 100 mg tablet TAKE ONE TABLET BY MOUTH AT BEDTIME FOR insomnia active Not Available Not Available No t Available doxycycline monohydrate 100 mg capsule Take 1 po every 12 hours x 10 days 10/12 completed Not Available Not Available Not Available erythromyci n 5 mg/gram (0.5 %) eye ointment 06/21 completed Not Available Not Available Not Available nystatin 100,000 unit/gram topical cream Apply sufficien t amount to affected area bid 06/21 completed Not Available Not Available Not Available orphenadrin e citrate ER 100 mg tablet,exte nded release 12/23 completed Not Available Not Available Not Available methylpredn isolone 4 mg tablets in a dose pack TAKE 6 TABLETS ON DAY 1 DIRECTED ON PACKAGE AND DECREASE BY 1 TAB EACH DAY FOR A TOTAL OF 6 DAYS 12/23 completed Not Available Not Available Not Available bromphenira mine-pseudo ephedrine-D M 2 mg-30 mg-10 mg/5 mL oral syrup take 10 millilite rs by oral route every 4 hours 05/08 completed Not Available Not Available Not Available cefdinir 300 mg capsule Take 1 capsule every 12 hours by oral route for 10 days. 11/26 completed Not Available Not Available Not Available fluticasone propionate 50 mcg/actuati on nasal spray,suspe nsion 1 spray(s) each nostril daily. 09/14 completed Not Available Not Available Not Available Augmentin 500 mg-125 mg tablet take 1 tablet by oral route every 12 hours 06/28 completed Not Available Not Available Not Available amoxicillin 875 mg-potassiu m clavulanate 125 mg tablet TAKE ONE TABLET BY MOUTH every 12 hours FOR 10 DAYS active Not Available Not Available No t Available cyclobenzap rine 5 mg tablet 09/14 completed Not Available Not Available Not Available omeprazole 09/03 completed Not Available Not Available Not Available Vitamin D3 2018 active Not Available Not Available Not Avai lable Veronica 05/08 completed Not Available Not Available Not Available FiberCon 05/08 completed Not Available Not Available Not Available Zyrtec 10 mg capsule 05/08 completed Not Available Not Available Not Available Stahist AD 25 mg-60 mg tablet Take 1 tablet 3 times a day by oral route as needed. 06/11 completed Not Available Not Available Not Available Brisdelle 7.5 mg capsule Take 1 capsule every day by oral route at bedtime. 06/24 completed Not Available Not Available Not Available Saxenda 3 mg/0.5 mL (18 mg/3 mL) subcutaneou s pen injector INJECT 3 MG UNDER THE SKIN INTO THE APPROPRIA TE AREA DIRECTED DAILY. 12/21 completed Not Available Not Available Not Available Lomaira 8 mg tablet TAKE 1 TABLET BY MOUTH THREE TIMES A DAY (PA DENIED 06/01/22) 12/21 completed Not Available Not Available Not Available Plenvu 140 gram-9 gram-5.2 gram powder packs TAKE DIRECTED FOR COLONOSCO PY 12/16 completed Not Available Not Available Not Available BD Cleopatra 2nd Gen Pen Needle 32 gauge x 32 USE DIRECTED active Not Available Not Available No t Available Sandee 0.025 mg/24 hr transdermal patch 12/21 completed Not Available Not Available Not Available Wegovy 2.4 mg/0.75 mL subcutaneou s pen injector INJECT 0.75 ML UNDER THE SKIN INTO THE APPROPRIA TE AREA DIRECTED 1 (ONE) TIME PER WEEK. active Not Available Not Available No t Available Wegovy 1.7 mg/0.75 mL subcutaneou s pen injector INJECT 1.7 MG UNDER THE SKIN INTO THE APPROPRIA TE AREA DIRECTED 1 (ONE) TIME PER WEEK. 03/07 completed Not Available Not Available Not Available Vitals Date Recorded Body height Body mass index (BMI) Body weight Body temperature Heart rate Oxygen saturation Systolic And Diastolic Provider Name and Address Organization Details Last Updated DateTime 5 162.56 cm 28.4 kg/m2 25047.9 g 98 [degF] 91 /min 96 % 125/66 mm[Hg] GLORIA [employer] 5 15:28:17 Date Recorded Body height Body mass index (BMI) Body weight Body temperature Heart rate Oxygen saturation Systolic And Diastolic Provider Name and Address Organization Details Last Updated DateTime 5 162.56 cm 28.3 kg/m2 17363.7 4 g 98.6 [degF] 90 /min 96 % 109/72 mm[Hg] GLORIA [employer] 5 10:41:19 Date Recorded Body height Body mass index (BMI) Body weight Body temperature Heart rate Oxygen saturation Systolic And Diastolic Provider Name and Address Organization Details Last Updated DateTime 4 162.56 cm 28 kg/m2 55406.5 6 g 98 [degF] 84 /min 95 % 102/63 mm[Hg] GLORIA [employer] 4 16:55:26 Date Recorded Body height Body mass index (BMI) Body weight Body temperature Heart rate Oxygen saturation Systolic And Diastolic Provider Name and Address Organization Details Last Updated DateTime 4 162.56 cm 27.5 kg/m2 46513.5 g 98 [degF] 77 /min 98 % 105/66 mm[Hg] GLORIA [employer] 4 14:00:58 Social History Question Answer Notes LastModified by Organizat ion Details LastModified Time Tobacco Smoking Status Never Smoker SocialHis toryQuest ion: 'Tobacco/ Alcohol/S upplement s'; SocialHis toryRespo nse: 'Never Smoker'; Not Available [facility] 04/11/2022 23:01:59 Is Your Home Air Conditioned? Yes Information not available 12/17/2023 In The 14 Days Before Symptom Onset, Have You Had Close Contact With A Laboratory-confir med COVID-19 While That Case Was Ill? No Information not available 12/17/2023 In The 14 Days Before Symptom Onset, Have You Had Close Contact With A Person Who Is Under Investigation For COVID-19 While That Person Was Ill? No Information not available 12/17/2023 Have You Been To An Area Known To Be High Risk For COVID-19? No Information not available 12/17/2023 What Type Of Diet Are You Following? REGULAR Information not available 12/17/2023 Are There Any Guns Present In Your Home? No Information not available 12/17/2023 What Was The Date Of Your Most Recent Tobacco Screening? 01/30/2025 Information not available 01/30/2025 What Is Your Relationship Status? Information not available 12/17/2023 Do You Use Your Seat Belt Or Car Seat Routinely? Yes Information not available 12/17/2023 Do You Have Smoke And Carbon Monoxide Detectors In Your Home? Yes Information not available 12/17/2023 Are You Passively Exposed To Smoke? No Information no t available 12/17/2023 Are There Any Smokers In Your House? No Information not available 12/17/2023 Do You Use Sunscreen Routinely? Yes Information not available 12/17/2023 Have You Recently Traveled Abroad? No Information not available 12/17/2023 Do You Have Any Dietary Restrictions? No Information not available 12/17/2023 Sex: Female Functional Status Question Answer Note LastModified by Organizat ion Details LastModified Time Do you use any illicit or recreational drugs? No Information not available 12/17/2023 Do you or have you ever used any other forms of tobacco or nicotine? No [email or web address] Information not available 05/08/2022 What is your level of alcohol consumption? None [email or web address] Information not available 05/08/2022 Are you currently employed? Yes Information not available 12/17/2023 Do you have transportation difficulties? No Information not available 12/17/2023 Mental Status None recorded. Family History Relationship Description Onset Age of this Age Resolved Age Notes LastModified by Organization Details LastModified Time Unspecified Relation Family history of breast cancer Relati ve: ''; [email or web address] Not available 04/11/2022 22:56:53 Unspecified Relation Family history of ischemic heart disease Relati ve: ''; [email or web address] Not available 04/11/2022 22:56:53 Unspecified Relation Family history of malignant neoplasm Relati ve: ''; [email or web address] Not available 04/11/2022 22:56:53 Notes:*Procedure Description : Documented family medical history in mother*Relative: Mother *Procedure Description: Documented family medical history in father*Relative: Father Medical History Condition Response Allergies (Food, seasonal, environmental ) Y Acid Reflux (GERD) Y Gynecological History Statement/Question Response Date of Last Pap Smear Most Recent Mammogram 06/18/2023 Obstetrics History GPAL:G 0 P 0 0 0 0 Immunizations Vaccine Type Date Status Note Provider Nam e and Address Organization Details Recorded Time Influenza, split virus, trivalent, PF 5 completed Jazzmine Galo APRN [address] [place] [address], [address], [employer] 05/16/2025 08:30:05 Influenza, split virus, quadrivalent, preservative 8 completed Sarah cody, [employer] 03/26/2024 08:39:11 Influenza, recombinant, quadrivalent, PF 0 completed Sarah cody [employer] 03/26/2024 08:39:11 COVID-19, mRNA, LNP-S, PF, 100 mcg/0.5mL dose or 50 mcg/0.25mL dose 1 completed Sarah cody [employer] 03/26/2024 08:39:11 COVID-19, mRNA, LNP-S, PF, 100 mcg/0.5mL dose or 50 mcg/0.25mL dose 1 completed Sarah cody [employer] 03/26/2024 08:39:11 COVID-19, mRNA, LNP-S, PF, 100 mcg/0.5mL dose or 50 mcg/0.25mL dose 1 completed Sarah cody, [employer] 03/26/2024 08:39:11 COVID-19, mRNA, LNP-S, bivalent, PF, 50 mcg/0.5 mL or 25mcg/0.25 mL dose 2 completed Sarah cody, [employer] 03/26/2024 08:39:11 Td (adult) 9 completed Sarah Cruz null, [employer] 03/26/2024 08:39:11 Hep A, adult 5 completed Sarah cody, [employer] 03/26/2024 08:39:12 Influenza, split virus, quadrivalent, PF 2 completed Sarah Cruz null, [employer] 03/26/2024 08:39:12 influenza nasal, unspecified formulation 4 completed GLORIA MYNEAR null, [employer] 06/24/2024 14:01:57 SARS-COV-2 (COVID-19) vaccine, UNSPECIFIED 4 completed GLORIA MYNEAR null, [employer] 06/24/2024 14:02:20 Influenza, split virus, quadrivalent, PF 3 completed Not Available [facility] 05/14/2025 09:09:44 Tdap 5 completed Not Available [facility] 05/14/2025 09:09:44 Past Encounters Encounter ID Performer Location Encounter Start Date Encounter Closed Date Diagnosis/Indication Diagnosis SNOMED-CT Code Diagnosis ICD10 Code Diagnosis IMO Codes Diagnosis Note [id number] Polly Iyer APRN [address] [address] 05/08/2022 13:20:03 05/10/2022 09:21:31 Acute maxillary sinusitis 32147920 J01.01 [id number] Polly Iyer APRN [address] [address] 06/08/2022 14:30:07 06/12/2022 14:13:36 Acute upper respiratory infection 97693477 J06.9 [id number] Polly IsraelMARIPOSA dugan [address] [address] 06/21/2022 10:42:06 06/26/2022 09:22:19 Low back pain 756911592 M54.50 [id number] Polly MARIPOSA Iyer [address] [address] 09/14/2022 14:39:03 09/22/2022 11:12:02 Acute upper respiratory infection 49636939 J06.9 [id number]mine [address] [address] 10/03/2022 15:55:33 10/03/2022 17:31:51 Pain in throat 154878366 R07.0 Discussed potential complicati ons and interventi on options with the patient during this visit. Patient was instructed to increase room humidity and eat soft bland foods. Patient was instructed to gargle frequently with warm salt water. Raising the head of the bed, lozenges, and saline nasal spray were also recommende d. Patient may take ibuprofen or acetaminop hen as needed for pain control. If the issue does not improve in 24-48 hours, patient should return to the clinic for follow-up. Perimenopausal state 952 [id number] 58201 Z78.0 Reviewed self-help strategies (dietary changes/ex ercise/acc upuncture/ etc.), herbal and other OTC therapies, hormonal options as well as other medication s used to treat common menopausal symptoms. Discussed the risks, benefits and potential side effects and bleeding patterns with use of HRT. Reviewed the risk implicatio ns with short term vs snf use. [id number] Polly Iyer APRN [address] [address] 12/21/2022 08:33:15 12/22/2022 09:28:49 Body mass index 30+ - obesity 349870257 Z68.31 Healthy lifestyle discussed. Will follow up at next visit. Acute maxi llary sinusitis 12611760 J01.01 [id number] Polly IyerMARIPOSA [place] [address] 06/11/2023 14:09:06 06/12/2023 15:24:03 Streptococcal sore throat 20261331 J02.0 Body mass index 30+ - obesity 557095943 Z68.31 Healthy lifestyle discussed. Will follow up at next visit. [id number] Lillian Yarbrough APRN [place] [address] 09/20/2023 08:16:13 09/20/2023 10:17:45 Streptococcal sore throat 69262319 J02.0 Body mass index 25-29 - overweight 907482608 Z68.28 [id number] Lillian Yarbrough APRN [place] [address] 2 11/27/2023 08:45:32 11/29/2023 09:21:38 Acute sinusitis 42464750 J01.90 Increased body mass index 02601822 E66.3 Body mass index 25-29 - overweight 307416654 Z68.28 [id number] [place] [address] 12/17/2023 15:59:55 12/17/2023 16:36:48 Adult health examination 857392878 Z00.00 Counseled regarding contracept nichelle options, and need for contracept ion until no menses for 1 year. BSE reviewed and recommende d . Reviewed calcium needs, exercise, and prevention of osteoporos is . Reviewed normal perimenopa usal transition . Mammogram recommende d yearly . Colonoscop y recommende d at age 50. Perimenopausal state 366 8411503 04355 Z78.0 Reviewed self-help strategies (dietary changes/ex ercise/acc upuncture/ etc.), herbal and other OTC therapies, hormonal options as well as other medication s used to treat common menopausal symptoms. Discussed the risks, benefits and potential side effects and bleeding patterns with use of HRT. 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 I explained to patient she needs progestero ne therapy 10 days a month if she intends to continue estrogen patch to prevent uterine hyperplasi a. She states she wants to try going odd patch over her summer break, see if sx are improved then after she retires at the end of this month. I will refill patch to cover until end of this month. She agrees to RTC this summer for PAP. Body mass index 25-29 - overweight 588068460 Z68.29 [id number] Jazzmine Galo [place] [address] 03/07/2024 13:42:18 03/10/2024 08:00:44 Adult health examination 374166591 Z00.00 Counseled regarding contracept nichelle options, and need for contracept ion until no menses for 1 year. BSE reviewed and recommende d . Reviewed calcium needs, exercise, and prevention of osteoporos is . Reviewed normal perimenopa usal transition . Mammogram recommende d yearly . Colonoscop y recommende d at age 50. Body mass index 25-29 - overweight 876721204 Z68.29 [id number] [place] [address] 03/26/2024 08:34:11 03/26/2024 09:41:28 Acute maxillary sinusitis 39489697 J01.00 Increased body mass index 91742974 E66.3 Body mass index 25-29 - overweight 397025007 Z68.28 [id number] Rose Valadez [place] [address] 04/26/2024 08:23:11 04/26/2024 09:36:49 Pain in throat 816828668 R07.0 Acute sinusitis 81155484 J01.90 Body mass index 25-29 - overweight 412482625 Z68.28 [id number] Jazzmine Galo [place] [address] 05/13/2024 16:22:04 05/13/2024 17:21:55 Hot sweats 604450464 R61 Reviewed self-help strategies (dietary changes/ex ercise/acc upuncture/ etc.), herbal and other OTC therapies, hormonal options as well as other medication s used to treat common menopausal symptoms. Discussed the risks, benefits and potential side effects and bleeding patterns with use of HRT. 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 Body mass index 25-29 - overweight 692465073 Z68.29 [id number] [place] [address] 06/24/2024 13:23:55 06/24/2024 15:11:19 Abnormal vasomotor function 13389350 I73.89 Continue Paxil and trazodone Insomnia 592308745 G47.0 0 Body mass index 25-29 - overweight 263608979 Z68.29 [id number] [place] [address] 0 12/23/2024 15:20:58 12/23/2024 16:02:41 Abnormal vasomotor function 71668262 I73.89 Continue Paxil and trazodone Insomnia 756185117 G47.0 0 Sleep hygiene and exercise encouraged . Body mass index 25-29 - overweight 318577846 E66.3 [id number] [place] [address] 01/30/2025 10:16:15 01/30/2025 11:14:10 Acute sinusitis 03892573 J01.90 [id number] Patient likely has an acute bacterial sinusitis. Will treat as below. No signs of preseptal or orbital cellulitis , meningismu s, or neurologic changes concerning for intracrani al process. Instructed family to monitor patient closely and call office for any of these symptoms. Supportive care reviewed: raising HOB, humidifier use, saline nasal spray, rest, encourage PO fluids and monitor hydration status, infection control measures. Recommende d acetaminop hen/ibupro fen PRN pain, fever; reviewed appropriat e doses. Follow-up as below. [id number] [facility] [place] [address] [place] [address] 05/14/2025 09:07:43 05/14/2025 09:13:02 Influenza vaccination given 7192239157 9109 Z23 [id number] Health Concerns Section Related Observation LastModified by Organization Detai ls LastModified Time None Recorded Concern Status LastModified by Organization Details LastModified Time None Recorded Advance Directives Directive None Recorded Payers Insurance Date Sequence Insurance Name Policy Number Policy Jones Covered Member ID Jones Member ID Guarantor Name 05/14/2025 1 [place] [id number] Shante Jd Adam [id number] Shante Adam Notes Date Note Type Note Provider Name and Address Organization Details Recorded Time 05/13/20 24 text/htm l MenopauseReported by PatientMenopauseFor associated symptoms, patient reportsirritabilityandloss of libido. For onset/timing, patient reports6-12 months. For quality, patient reportsnight sweats,sleep issues,mood changes,hot flashes >8 times/day, andaffects quality of life. For severity, patient reportsmoderate. For duration, patient reportsprolonged. For context, patient reportsno menses for over 1 year. For alleviating factors, patient reportsnone. For aggravating factors, patient reportspoor sleep,heat, andstress.ROS as noted in the HPI Jazzmine Galo APRN [address] [place] [address], [phone], [facility] [employer] 05/18/2024 20:50:13 06/24/20 24 text/htm l MenopauseReported by PatientMenopauseFor associated symptoms, patient reportsirritabilityandloss of libido. For onset/timing, patient reports6-12 months. For quality, patient reportsnight sweats,sleep issues,mood changes,hot flashes >8 times/day, andaffects quality of life. For severity, patient reportsmoderate. For duration, patient reportsprolonged. For context, patient reportsno menses for over 1 year. For alleviating factors, patient reportsother medications. For aggravating factors, patient reportspoor sleep,heat, andstress.Sh reports insomnia, hot flashes and irritability are all improving since starting meds. She is tolerating meds without side effects.ROS as noted in the [facility] Jazzmine Galo APRN [address] [place], [address], Age of Learning. 06/24/2024 17:51:50 12/24/19 25 text/htm l MenopauseReported by PatientMenopauseFor associated symptoms, patient reportsirritabilityandloss of libido. For onset/timing, patient reports1-2 years. For quality, patient reportsnight sweats,sleep issues,mood changes,hot flashes 4-8 times/day, andaffects quality of life. For severity, patient reportsmildandmoderate. For duration, patient reportsprolonged. For context, patient reportsno menses for over 1 year. For alleviating factors, patient reportsother medications. For aggravating factors, patient reportspoor sleep,heat, andstress.Shante presents today for f/up on menopausal sx management. She reports her hot flashes and irritability and insomnia are much improved with paxil and trazodone and she would like to continue those medications. She denies new complaints today.ROS as noted in the [facility] Jazzmine Galo APRN [address] [place], [address], Age of Learning. 12/23/2024 17:13:25 01/31/20 25 text/htm l Upper Respiratory SymptomsReported by PatientUpper Respiratory SymptomsFor quality, patient reportsproductive cough,congested, andnasal discharge. For context, patient reportsallergiesbut reportsno sick contactsandnon-smoker. For associated symptoms, patient reportsyellow sputum,difficulty breathing at night,fatigue, andheadachebut reportsno chest pain. For location, patient reportsnasalandface. For severity, patient reportsmoderate. For duration, patient reportssymptoms lasting less than 2 weeks. For onset/timing, patient reportsgradual. For alleviating factors, patient reportsanalgesics,antihistamin es, anddecongestant.ROS as noted in the [facility] Jazzmine Galo APRN [address] [place], [address], Age of Learning. 02/01/2025 15:24:16 OBGyn Episode No OBEpisode recorded.
--- OUTSIDE RECORDS SUMMARY | 2025-07-27 07:57 | XMS_ITS | Clinical Summary ---
Author Organization Healthcare Address [address] [place] [address] Care Team Providers Care Paying Teller Name Role Phone Pcp, No Primary Care Provider Unavailabl e Allergies No known active allergies Medications topiramate (Topamax) 25 MG tablet TAKE 2 TABLETS BY MOUTH EVERY DAY AT BEDTIME 4 Active Wegovy 2.4 MG/0.75ML solution auto-injector INJECT 2.4 MG UNDER THE SKIN INTO THE APPROPRIATE AREA DIRECTED 1 (ONE) TIME PER WEEK. Active traZODone (Desyrel) 100 MG tablet TAKE ONE TABLET BY MOUTH EVERY DAY NEEDED FOR insomnia AT bedtime Active PARoxetine (Paxil) 10 MG tablet Take 1 tablet (10 mg) by mouth 1 (one) time each day. 4 Active orphenadrine (Norflex) 100 MG 12 hr tablet Take 1 tablet (100 mg) by mouth every 12 (twelve) hours if needed. 5 Active HYDROcodone-acet aminophen (Cucumber) 5-325 MG tablet 5 Active cyanocobalamin (Vitamin B-12) 1000 MCG/ML injection Inject 1 mL (1,000 mcg) into the muscle. 4 Active cetirizine (ZyrTEC) 10 MG tablet Take 1 tablet (10 mg) by mouth 1 (one) time each day. Active estradiol (Climara) 0.025 MG/24HR apply ONE PATCH TO SKIN WEEKLY 4 Active fluticasone (Flonase) 50 MCG/ACT nasal spray Administer 2 sprays into affected nostril(s) 1 (one) time each day. Active methylPREDNISolo ne (Medrol Dospak) 4 MG tabletsIndicatio ns:Acute pain of right shoulder,Displac ed fracture of greater tuberosity of right humerus, initial encounter for closed fracture,Closed traumatic dislocation of glenohumeral joint, right, initial encounter Follow schedule on package instructions 21 tablet 5 Active Active Problems No known active problems Social History Tobacco Use Types Packs/Day Years Used Date Smoking Tobacco: Never Smokeless Tobacco: Never PHQ-2 Answer Date Recorded Patient Health Questionnaire-2 Score 0 09/02/2024 Comments Unknown Sex and Gender Information Value Date Recorded Sex Assigned at Not on file Legal Sex Female 8:22 PM EDT Gender Identity Not on file Sexual Orientation Not on file Last Filed Vital Signs Vital Sign Reading Time Taken Comments Blood Pressure 95/63 03/03/2025 12:28 PM EDT Pulse - - Temperature - - Respiratory Rate - - Oxygen Saturation - - Inhaled Oxygen Concentration - - Weight 71.7 kg (158 lb) 03/03/2025 12:28 PM EDT Height 162.6 cm (5' 4 ) 03/03/2025 12:28 PM EDT Body Mass Index 27.12 03/03/2025 12:28 PM EDT Plan of Treatment Health Maintenance Due Date Last Done Comments [facility]-HIV Screening 1974 [facility]-Hepatitis C Screening 1974 [facility]-Infant/Child/Adol SDOH Screenings 1974 [facility]- SDOH Screenings 02/16/1992 [facility]-Adult SDOH Screenings 02/16/1992 [facility]-Hepatitis B Vaccines (1 of 3 - 19+ 3-dose series) 1993 [facility]-Pap Smear 1995 [facility]-Cervical Cancer Screening 02/16/2004 [facility]-HPV/Cotest 02/16/2004 CT Colonography 2019 Colonoscopy 2019 FIT-DNA 2019 FIT 2019 FOBT 2019 Sigmoidoscopy 2019 [facility]-Colorectal Cancer Screening 2019 [facility]-Breast Cancer Screening 02/16/2024 01/12/2015, 0 11/21/2013 [facility]-Pneumococcal Vaccine: 50+ Years (1 of 1 - PCV) 02/16/2024 [facility]-Zoster Vaccines (1 of 2) 02/16/2024 [id number] Vaccine (2024- season) 2025 05/06/2024, 04/29/2022, 06/23/2021, Additional history exists [facility]-Influenza Vaccine (#1) 04/06/202505/06, 05/05/2023, 05/25/2022, Additional history exists [facility]-Depression Screening 09/02/2025 09/02/2024 [facility]-DTaP,Tdap,and Td Vaccines (2 - Td or Tdap) 08/16/2034 08/16/2024, 11/26/2018 [facility]-Hepatitis A Vaccines Aged Out 01/11/2015 No longer eligible based on patient's age to complete this topic [facility]-Obesity Intervention Completed 025, 12/02/2024, 10/07/2024, Additional history exists HPV Vaccines (No Doses Required) Completed [facility]-HIB Vaccines Aged Out No longer e ligible based on patient's age to complete this topic [facility]-IPV Vaccines Aged Out No longer e ligible based on patient's age to complete this topic [facility]-Rotavirus Vaccines Aged Out No lo nger eligible based on patient's age to complete this topic Insurance ANTH Care Teams Paying Teller Relationship Specialty Start Date End Date Pcp, [place] [address] PCP - General Family Medicine 08/26/24
--- OUTSIDE RECORDS SUMMARY | 2025-07-27 07:57 | XMS_ITS | Clinical Summary ---
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 Active Multiple Vitamin (MULTI VITAMIN DAILY PO) Take by mouth. Activ e fluticasone (FLONASE) 50 MCG/ACT nasal spray Administer 2 sprays into the nostril(s) as directed by provider Daily. Active Ascorbic Acid (Vitamin C) 125 MG chewable tablet Chew. Active traZODone (DESYREL) 100 MG tablet Take 1 tablet by mouth Every Night. 4 Active [place]-3 Fatty Acids (fish oil) 1000 MG capsule capsule Take by mouth Daily With Breakfast. Active PARoxetine (PAXIL) 10 MG tablet Take 1 tablet by mouth Every Morning. 4 Active Calcium Carb-Cholecalc iferol (Calcium 1000 + D) 1000-20 MG-MCG tablet 5 Active ibuprofen (ADVIL,MOTRIN) 800 MG tablet Take 1 tablet by mouth Every 8 (Eight) Hours As Needed. 5 Active topiramate (TOPAMAX) 25 MG tabletIndicati ons:Overweight (BMI 25.0-29.9) TAKE 2 TABLETS BY MOUTH EVERY DAY AT BEDTIME 180 tablet 5 Active Cholecalcifero l (Vitamin D) 50 MCG (2000 UT) tabletIndicati ons:Vitamin D deficiency Take 1 tablet by mouth Daily. 5 04/07/20 26 Active Semaglutide-We ight Management (Wegovy) 2.4 MG/0.75ML solution auto-injectorI ndications:Ovnaomy [place] (BMI 25.0-29.9) Inject 0.75 mL under the skin into the appropriate area as directed 1 (One) Time Per Week. 9 mL 5 Active Semaglutide-We ight Management (Wegovy) 2.4 MG/0.75ML solution auto-injectorI ndications:Ovnaomy wan (BMI 25.0-29.9) Inject 0.75 mL under the skin into the appropriate area as directed 1 (One) Time Per Week. 9 mL 5 07/06/20 25 Discontin ued([facility]) Hospital, Clinic, or Other Facility Administered Medication Ordered Dose Route Frequency Start Date End Date Status cyanocobalamin injection 1,000 mcgIndications:Fatigue, unspecified type 1000 mcg IM Every 28 Days 04/07/2025 Activ e Active Problems Problem Noted Date Diagnosed Date Hypoglycemia 04/07/2025 Assessment & Plan (04/07/2025 9:08 AM EDT): Infrequent mild hypoglycemia. A1c borderline low at 4.9. Reminded to always keep a snack on hand- 10g complex carb (with fiber or protein or healthy fat). Dislocation of right shoulder joint 09/16/2024 Assessment & Plan (09/16/2024 10:32 AM EST): Exercise limited, has follow up with ortho surgeon in 2 weeks. Now taking calcium and vit D 50,0000ius. Polyphagia 12/06/2023 Assessment & Plan (12/06/2023 2:31 PM EDT): Multifactorial: - acute upper respiratory infection and antibiotics - increased stress at work - eriberto-menouse - decrease in wegovy Increase wegovy back to 2.4mg. Take supplements consistently, avoid sweets and addictive foods. Blurry vision 06/13/2023 Assessment & Plan (06/13/2023 2:22 PM EST): Unlikely to be related to topamax, onset in the last 2 weeks. Denies headache or symptoms of hypoglycemia. Advised to seek urgent treatment (eye exam) for worsening of symptoms or new symptoms. Nutritional counseling 02/14/2023 Other insomnia 12/19/2022 Assessment & Plan (03/10/2024 10:06 AM EDT): Recently worsening, likely due to eriberto-menopause. Continue good sleep hygiene. Continue topamax. Increase protein if needed (check with food journal). Ok to continue protein pudding after dinner if it is helping. Assessment & Plan (12/06/2023 2:32 PM EDT): Stable and controlled with topamax nightly. Continue. Reassess in 3 mos. Assessment & Plan (09/05/2023 1:22 PM EST): Improved with topamax. No side effects. Assessment & Plan (12/19/2022 8:37 AM EDT): Resolved with addition of topamax, tolerating without side effects. Reassess next visit. Gastroesophageal reflux disease 11/15/2021 Assessment & Plan (06/07/2022 12:54 PM EDT): Stable. Continue omeprazole. Check labs. Continue with weight reduction. Reassess in 3 months. Assessment & Plan (02/07/2022 5:15 PM EDT): Improving with weight reduction. Assessment & Plan (12/15/2021 8:46 AM EDT): Stable with prilosec. Continue with weight reduction. Assessment & Plan (11/15/2021 3:47 PM EDT): May be related to recent antibiotics. Take omeprazole daily for 2 weeks then discontinue. Other hyperlipidemia 08/11/2021 Overview (07/23/2024): 01/14/2024 LDL 115 06/2022 TC 215, LDL 140 TC and LDL elevated 2018 Assessment & Plan (01/08/2025 1:19 PM EDT): Repeat labwork. Con't healthy lifestyle choices with diet low in saturated fat and regular aerobic exercise. Assessment & Plan (07/23/2024 11:02 AM EST): Continue healthy lifestyle choices including diet low in saturated fat and regular exercise. Repeat lab in January. Assessment & Plan (04/16/2023 2:24 PM EDT): Continue healthy lifestyle choices, bring back regular aerobic exercise. Repeat labs next visit. Assessment & Plan (10/23/2022 8:27 AM EDT): Continue with healthy lifestyle changes, limiting saturated fat. Continue with weight reduction and regular aerobic exercise. Repeat in December. Assessment & Plan (08/14/2022 2:28 PM EST): Lipid abnormalities are stable. Nutritional counseling was provided. Lipids will be reassessed in 1 year. Assessment & Plan (04/27/2022 7:55 AM EDT): TC and LDL elevated in 2019. Repeat labs tomorrow. Assessment & Plan (09/29/2021 10:36 AM EST): Weight reduction. Low saturated fat diet. Assessment & Plan (08/25/2021 7:54 AM EST): Weight reduction. Continue with lifestyle changes. Assessment & Plan (08/12/2021 8:16 AM EST): Lipid abnormalities are stable (calling for recent labs). Nutritional counseling was provided. Lipids will be reassessed in 1 year. Weight reduction of 5-15% Overweight (BMI 25.0-29.9) 08/11/2021 Assessment & Plan (04/07/2025 9:07 AM EDT): Patient's (Body mass index is 27.64 kg/m .) indicates that they are overweight with health conditions that include dyslipidemias and GERD . Weight is improving with treatment. BMI is above average; BMI management plan is completed. We discussed low calorie, low carb based diet program, portion control, increasing exercise, pharmacologic options including wegovy, topamax, and an marshal-based approach such as [employer] Pal or Lose It. I have instructed the patient to continue with pursuit of medical weight loss as a part of this program. Patient does meet criteria for use of anorectics at this time as BMI > 27 with coexisting, hyperlipidemia, and this medication is indicated for INTERMEDIATE use for management of obesity. The current plan for this month includes: - Continue current exercise efforts. - Continue to prioritize protein, fiber, and hydration. Bring back daily food journal. - Treatment goal <162lb. %fat has increased since last visit, working on decreasing carbs and increasing protein. Assessment & Plan (01/08/2025 1:19 PM EDT): Patient's (Body mass index is 27.67 kg/m .) indicates that they are overweight with health conditions that include dyslipidemias and GERD . Weight is worsening. BMI is above average; BMI management plan is completed. We discussed low calorie, low carb based diet program, portion control, increasing exercise, management of depression/anxiety/stress to control compensatory eating, pharmacologic options including wegovy, topamax, and an marshal-based approach such as [employer] Pal or Lose It. I have instructed the patient to continue with pursuit of medical weight loss as a part of this program. Patient does meet criteria for use of anorectics at this time as this medication is indicated for RECAPPER use for management of obesity. The current plan for this month includes: - Continue current exercise efforts- increasing as tolerated. - Prioritize protein, fiber, and hydration. Restart food journal, work on preplanning. - Con't current medications. Due for labs, not fasting today. Will place order to get those before next visit. - Treatment goal <162lb. Assessment & Plan (09/16/2024 10:24 AM EST): Patient's (Body mass index is 27.22 kg/m .) indicates that they are overweight with health conditions that include dyslipidemias and GERD . Weight is improving with treatment. BMI is above average; BMI management plan is completed. We discussed low calorie, low carb based diet program, portion control, increasing exercise, pharmacologic options including wegovy, topamax, and an marshal-based approach such as [employer] Pal or Lose It. I have instructed the patient to continue with pursuit of medical weight loss as a part of this program. Patient does meet criteria for use of anorectics at this time as BMI > 27 with coexisting, hyperlipidemia, and is not at treatment goal. The current plan for this month includes: - Continue to prioritize protein, fiber, and hydration. - Some weight gain is expected with the type of exercise restrictions she has. If weight increases 5 or more pounds it's time to restart food journal, increase exercise as tolerated. - Continue current medications, tolerating without side effects. - Advised to get in with PCP for follow up with her injury and labwork. Her appt was cancelled due to the weather last month then her injury. - Treatment goal <162lb. Lowest healthy weight is 130lb. Assessment & Plan (07/23/2024 11:00 AM EST): Patient's (Body mass index is 26.33 kg/m .) indicates that they are overweight with health conditions that include dyslipidemias and GERD . Weight is improving with treatment. BMI is above average; BMI management plan is completed. We discussed low calorie, low carb based diet program, portion control, increasing exercise, pharmacologic options including wegovy, topamax, and an marshal-based approach such as [employer] Pal or Lose It. I have instructed the patient to continue with pursuit of medical weight loss as a part of this program. Patient does meet criteria for use of anorectics at this time as BMI > 27 with coexisting and hyperlipidemia. The current plan for this month includes: - Continue current exercise efforts - Continue to prioritize protein, fiber, and hydration. - continue current dose of wegovy, tolerating with minimal side effects - At goal weight <162lb, goal from here is to maintain. If weight goes <130lb consider decreasing wegovy dose. Assessment & Plan (05/12/2024 2:10 PM EDT): Patient's (Body mass index is 27.26 kg/m .) indicates that they are overweight with health conditions that include dyslipidemias and GERD . Weight is improving with treatment. BMI is above average; BMI management plan is completed. We discussed low calorie, low carb based diet program, portion control, increasing exercise, pharmacologic options including wegovy, topamax, and an marshal-based approach such as [employer] Pal or Lose It. I have instructed the patient to continue with pursuit of medical weight loss as a part of this program. Patient does meet criteria for use of anorectics at this time as BMI > 27 with coexisting, is not at treatment goal, and this medication is indicated for INTERMEDIATE use for management of obesity. The current plan for this month includes: - Continue current exercise efforts - Continue to prioritize protein, fiber, and hydration. - Continue current medications, tolerating without side effects. - Treatment goal waist circumference <35 and % fat <34% Assessment & Plan (03/10/2024 10:04 AM EDT): Patient's (Body mass index is 27.77 kg/m .) indicates that they are overweight with health conditions that include dyslipidemias and GERD . Weight is improving with treatment. BMI is above average; BMI management plan is completed. We discussed low calorie, low carb based diet program, portion control, increasing exercise, pharmacologic options including wegovy, topamax, and an marshal-based approach such as [employer] Pal or Lose It. I have instructed the patient to continue with pursuit of medical weight loss as a part of this program. Patient does meet criteria for use of anorectics at this time as BMI > 27 with coexisting, hyperlipidemia, and this medication is indicated for INTERMEDIATE use for management of obesity. The current plan for this month includes: - Continue current exercise efforts - Continue to prioritize protein, fiber, and hydration. - Insomnia likely related to eriberto-menopause and possibly hunger. - bring back daily food journal, protein goal 80g/day. - Increase veggie consumption. - Continue current medications. - At happy weight goal (100lb down from LSG). - Next goal healthy goal : waist circumference 35 , %fat 34% Assessment & Plan (12/06/2023 2:30 PM EDT): Patient's (Body mass index is 28.12 kg/m .) indicates that they are overweight with health conditions that include dyslipidemias and GERD . Weight is improving with treatment. BMI is is above average; BMI management plan is completed. We discussed low calorie, low carb based diet program, portion control, increasing exercise, management of depression/anxiety/stress to control compensatory eating, pharmacologic options including wegovy, topamax, and an marshal-based approach such as MyFitness Pal or Lose It. I have instructed the patient to continue with pursuit of medical weight loss as a part of this program. Patient does meet criteria for use of anorectics at this time as this medication is indicated for RECAPPER use for management of obesity. The current plan for this month includes: - Continue current exercise efforts - Continue to prioritize protein, fiber, and hydration. - Increase wegovy back to 2.4mg due to increased hunger. - Treatment goal 162lb. Assessment & Plan (09/05/2023 1:33 PM EST): Patient's (Body mass index is 28.12 kg/m .) indicates that they are overweight with health conditions that include dyslipidemias and GERD . Weight is improving with treatment. BMI is is above average; BMI management plan is completed. We discussed low calorie, low carb based diet program, portion control, increasing exercise, joining a fitness center or start home based exercise program, pharmacologic options including wegovy, topamax, and an marshal-based approach such as [employer] Pal or Lose It. I have instructed the patient to continue with pursuit of medical weight loss as a part of this program. Patient does meet criteria for use of anorectics at this time as this medication is indicated for RECAPPER use for management of obesity. The current plan for this month includes: - Add resistance training - Continue to prioritize protein, fiber, and hydration. - At treatment goal. Will decrease wegovy to 1.7mg and follow up in 3 months. - Repeat labs, external order given. Assessment & Plan (06/13/2023 2:20 PM EST): Patient's (Body mass index is 28.63 kg/m .) indicates that they are overweight with health conditions that include dyslipidemias and GERD . Weight is improving with treatment. BMI is is above average; BMI management plan is completed. We discussed low calorie, low carb based diet program, portion control, increasing exercise, joining a fitness center or start home based exercise program, pharmacologic options including wegovy, topiramate, and an marshal-based approach such as My[employer]itness Pal or Lose It. I have instructed the patient to continue with pursuit of medical weight loss as a part of this program. Patient does meet criteria for use of anorectics at this time as this medication is indicated for INTERMEDIATE use for management of obesity. The current plan for this month includes: - Continue to work on lifestyle behavioral changes - bring back food journal - Bring back regular exercise. - Treatment goal 162lb. Assessment & Plan (04/16/2023 2:23 PM EDT): Patient's (Body mass index is 29.7 kg/m .) indicates that they are overweight with health conditions that include dyslipidemias and GERD . Weight is improving with treatment. BMI is is above average; BMI management plan is completed. We discussed low calorie, low carb based diet program, portion control, increasing exercise, joining a fitness center or start home based exercise program, pharmacologic options including wegovy, topiramate, and an marshal-based approach such as MyFitness Pal or Lose It. I have instructed the patient to continue with pursuit of medical weight loss as a part of this program. Patient does meet criteria for use of anorectics at this time as BMI > 27 with coexisting, hyperlipidemia, is not at treatment goal, and this medication is indicated for RECAPPER use for management of obesity. Continue nutritional focus and work towards new exercise FITT goal of: 2-2-4-2. The current plan for this month includes: - Adjust exercise as discussed - Continue nutrition focus - Continue to prioritize protein, fiber, and hydration. - Treatment goal 162lb. Assessment & Plan (02/14/2023 11:49 AM EDT): Patient's (Body mass index is 30.07 kg/m .) indicates that they are obese (BMI >30) with health conditions that include dyslipidemias and GERD . Weight is improving with treatment. BMI is above average; BMI management plan is completed. We discussed low calorie, low carb based diet program, portion control, increasing exercise, pharmacologic options including wegovy, topamax, and an marshal-based approach such as [employer] Pal or Lose It. I have instructed the patient to continue with pursuit of medical weight loss as a part of this program. Patient does meet criteria for use of anorectics at this time as BMI >30 and is not at treatment goal. Continue nutritional focus and work towards new exercise FITT goal of: 2-2-4-2 (add resistance training) The current plan for this month includes: adjust exercise as discussed and continue nutrition focus with emphasis on adequate protein, water and fiber. Almost to goal of 162lb (which would be a total of -100lb since her highest lifetime weight) Assessment & Plan (12/19/2022 8:35 AM EDT): Patient's (Body mass index is 31.34 kg/m .) indicates that they are obese (BMI >30) with health conditions that include dyslipidemias and GERD . Weight is improving with treatment. BMI is above average; BMI management plan is completed. We discussed low calorie, low carb based diet program, portion control, increasing exercise, joining a fitness center or start home based exercise program, pharmacologic options including wegovy, topamax and an marshal-based approach such as [employer] Pal or Lose It. I have instructed the patient to continue with pursuit of medical weight loss as a part of this program. Patient does meet criteria for use of anorectics at this time as BMI >30 and is not at treatment goal. Continue nutritional focus and work towards new exercise FITT goal of: 2-2-4-2. Starting at the gym with her daughter. The current plan for this month includes: adjust exercise as discussed, weight loss goal 4-6lbs this month and continue nutrition focus. Encouraged to keep meal structure and planning a priority with change in schedule coming in 2 weeks when school is out. Recommend food journal during that time. Treatment goal 162lb. Assessment & Plan (10/23/2022 8:26 AM EDT): Patient's (Body mass index is 31.76 kg/m .) indicates that they are obese (BMI >30) with health conditions that include dyslipidemias and GERD . Weight is improving with treatment. BMI is above average; BMI management plan is completed. We discussed low calorie, low carb based diet program, portion control, increasing exercise, pharmacologic options including wegovy, topamax and an marshal-based approach such as [employer] Pal or Lose It. I have instructed the patient to continue with pursuit of medical weight loss as a part of this program. Patient does meet criteria for use of anorectics at this time as BMI >30 and is not at treatment goal. Continue nutritional focus and work towards new exercise FITT goal of: 2-2-4-2. Recommend 150 minutes a week of moderate intensity exercise with 2 resistance training sessions weekly. The current plan for this month includes: weight loss goal 4-6lbs this month and continue to work on lifestyle behavioral changes. Discontinue saxenda due to increased cravings and plateau for 4 months. 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 Denies family or personal history of pancreatitis, MTC, or MEN 2. Discussed common side effects of nausea, diarrhea, vomiting, constipation, stomach pain, headache, fatigue, upset stomach, dizziness, feeling bloated, belching, gas, stomach flu, heartburn. Treatment goal 162lb (100lb down from weight before MBS). Assessment & Plan (08/14/2022 2:28 PM EST): Patient's (Body mass index is 31.76 kg/m .) indicates that they are obese (BMI >30) with health conditions that include dyslipidemias and GERD . Weight is improving with treatment. BMI is is above average; BMI management plan is completed. We discussed low calorie, low carb based diet program, portion control, increasing exercise, pharmacologic options including phentermine, saxenda, topamax and an marshal-based approach such as [employer] Pal or Lose It. I have instructed the patient to continue with pursuit of medical weight loss as a part of this program. Patient does meet criteria for use of anorectics at this time as BMI >30 and is not at treatment goal. Continue nutritional focus and work towards new exercise FITT goal of: 2-2-4-2. Starting at the gym with a friend at least twice a week, will be walking on other days. The current plan for this month includes: Continue to work on lifestyle behavioral changes. Bring back daily food journal. Updated treatment goal to 162lb (which would be 100lb down since LSG). Continue current medications. Goal 4-6lb this month. Assessment & Plan (06/07/2022 12:57 PM EDT): Patient's (Body mass index is 32.18 kg/m .) indicates that they are obese (BMI >30) with health conditions that include dyslipidemias and GERD . Weight is improving with treatment. BMI is is above average; BMI management plan is completed. We discussed low calorie, low carb based diet program, portion control, increasing exercise, pharmacologic options including saxenda, Lomaira, topamax and an marshal-based approach such as [employer] Pal or Lose It. I have instructed the patient to continue with pursuit of medical weight loss as a part of this program. Patient does meet criteria for use of anorectics at this time as is not at treatment goal and BMI >30. Continue nutritional focus and work towards new exercise FITT goal of: 2-2-4-2. The current plan for this month includes: weight loss goal 4-6lbs this month and continue to work on lifestyle behavioral changes- bring back food journal and regular exercise. Insurance no longer paying for lomaira since its been >3 months. Patient desires to continue this for appetite control and will use a coupon. Continue current medications. Treatment goal 175lb. Assessment & Plan (04/27/2022 7:54 AM EDT): Patient's (Body mass index is 32.85 kg/m .) indicates that they are obese (BMI >30) with health conditions that include dyslipidemias and GERD . Weight is improving with treatment. BMI is is above average; BMI management plan is completed. We discussed low calorie, low carb based diet program, portion control, increasing exercise, pharmacologic options including saxenda, phentermine, topamax and an marshal-based approach such as [employer] Pal or Lose It. I have instructed the patient to continue with pursuit of medical weight loss as a part of this program. Patient does meet criteria for use of anorectics at this time as BMI >27 and is not at treatment goal. Continue nutritional focus and work towards new exercise FITT goal of: 2-2-4-2. The current plan for this month includes: continue current exercise efforts, it is appropriate to continue anorectic medications as prescribed at this time and continue nutrition focus. Goal 5-7lb. Assessment & Plan (02/07/2022 5:15 PM EDT): Patient's (Body mass index is 35.02 kg/m .) indicates that they are morbidly obese (BMI > 40 or > 35 with obesity - related health condition) with health conditions that include dyslipidemias and GERD . Weight is improving with treatment. BMI is is above average; BMI management plan is completed. We discussed low calorie, low carb based diet program, portion control, increasing exercise, pharmacologic options including saxenda, topiramate, lomaira and an marshal-based approach such as [employer] Pal or Lose It. I have instructed the patient to continue with pursuit of medical weight loss as a part of this program. Patient does meet criteria for use of anorectics at this time as BMI >27 and is not at treatment goal. Continue nutritional focus and work towards new exercise FITT goal of: 2-2-4-2. The current plan for this month includes: continue to work on lifestyle behavioral changes, keep up the good focus. Discussed adequate protein, water, and resistance training as foundation to treat a plateau. Add phentermine. Discussed that combining weight loss medications is off label and has not been studied. Goal is minimum of 4% loss (196lb) in 3 months (May) with addition of phentermine. After review of Ms. Shante Adam lab work, EKG, urine drug screen, PMH, and medical risk factors, it has been decided that it is medically appropriate to use an anorectic medication for assistance of weight loss. It is felt that the risks of staying at current body fat percentage and potential adverse co-morbid conditions outweighs the risk of medication use. Medication risks and benefits were again reviewed with patient. she has signed the medication agreement form & has decided to try the use of an anorectic medication for the assistance of weight loss. Assessment & Plan (12/15/2021 8:48 AM EDT): Patient's (Body mass index is 34.98 kg/m .) indicates that they are obese (BMI >30) with health conditions that include dyslipidemias and GERD . Weight is improving with treatment. BMI is is above average; BMI management plan is completed. We discussed low calorie, low carb based diet program, portion control, increasing exercise, pharmacologic options including topiramate and saxenda and an marshal-based approach such as [employer] Pal or Lose It. I have instructed the patient to continue with pursuit of medical weight loss as a part of this program. Patient does meet criteria for use of anorectics at this time as BMI >27 and is not at treatment goal. Continue nutritional focus and work towards new exercise FITT goal of: 2-2-4-2. [facility] at the [facility] in two weeks, her cousin is going to help her with strength training. The current plan for this month includes: continue current exercise efforts, it is appropriate to continue anorectic medications as prescribed at this time and continue nutrition focus. Goal 10-12lb. Assessment & Plan (11/15/2021 3:48 PM EDT): Patient's (Body mass index is 36.39 kg/m .) indicates that they are morbidly obese (BMI > 40 or > 35 with obesity - related health condition) with health conditions that include dyslipidemias and GERD . Weight is improving with treatment. BMI is is above average; BMI management plan is completed. We discussed low calorie, low carb based diet program, portion control, increasing exercise, pharmacologic options including saxenda and topiramate and an marshal-based approach such as [employer] Pal or Lose It. I have instructed the patient to continue with pursuit of medical weight loss as a part of this program. Patient does meet criteria for use of anorectics at this time as BMI >27 and is not at treatment goal. Continue nutritional focus and work towards new exercise FITT goal of: 2-2-4-2. The current plan for this month includes: continue to work on lifestyle behavioral changes and continue nutrition focus. Add topiramate for increased sweets cravings in the evening. Continue saxenda. Assessment & Plan (09/29/2021 10:35 AM EST): Patient's (Body mass index is 36.39 kg/m .) indicates that they are morbidly obese (BMI > 40 or > 35 with obesity - related health condition) with health conditions that include dyslipidemias . Weight is improving with treatment. BMI is is above average; BMI management plan is completed. We discussed low calorie, low carb based diet program, portion control, increasing exercise, management of depression/anxiety/stress to control compensatory eating, pharmacologic options including saxenda and an marshal-based approach such as [employer] Pal or Lose It. I have instructed the patient to continue with pursuit of medical weight loss as a part of this program. Patient does meet criteria for use of anorectics at this time as BMI >27 and is not at treatment goal. Continue nutritional focus and work towards new exercise FITT goal of: 2-2-4-2. The current plan for this month includes: adjust exercise as discussed, increase water to recommended daily amount, continue to work on lifestyle behavioral changes and continue nutrition focus. Daily food journal. Goal 6-8lb. Continue saxenda. Assessment & Plan (08/25/2021 7:53 AM EST): Patient's (Body mass index is 37.14 kg/m .) indicates that they are morbidly obese (BMI > 40 or > 35 with obesity - related health condition) with health conditions that include dyslipidemias . Weight is improving with treatment. BMI is is above average; BMI management plan is completed. We discussed low calorie, low carb based diet program, portion control, increasing exercise, pharmacologic options including saxenda and an marshal-based approach such as [employer] Pal or Lose It. I have instructed the patient to continue with pursuit of medical weight loss as a part of this program. Patient does meet criteria for use of anorectics at this time as BMI >27 and is not at treatment goal. Continue nutritional focus and work towards new exercise FITT goal of: 2-2-4-2. The current plan for this month includes: continue to work on lifestyle behavioral changes. Bring food journal to next visit. Continue to increase physical activity. Continue to titrate up on Saxenda. Assessment & Plan (08/12/2021 8:19 AM EST): Patient's (Body mass index is 37.68 kg/m .) indicates that they are morbidly obese (BMI > 40 or > 35 with obesity - related health condition) with health conditions that include dyslipidemias . Weight is worsening. BMI is is above average; BMI management plan is completed. We discussed low calorie, low carb based diet program, portion control, increasing exercise, management of depression/anxiety/stress to control compensatory eating, pharmacologic options including saxenda and an marshal-based approach such as [employer] Pal or Lose It. Topics of discussion included obesity as a disease, nutritional education on food groups, exercise, and medications. Patient was instructed in adequate protein, controlled carb and controlled fat intake. Patient received instructions on using the medicines as a tool in controlling their weight with nutritional and behavioral changes. Risks and benefits were discussed. I believe the potential benefits of medication helping to decrease weight outweighs the risks. Patient received our clinic education booklet. Our patient consent form was reviewed including potential risks of weight loss. We also reviewed our confidentiality and HIPPA statements. Patients current FITT score was reviewed along with current capability for exercise tolerance and a patient will work towards a FITT score of: Frequency Intensity Time Strength Training [] 0 None [] 0 None [] 0 None [] 0 None [] 1 (1-2x/week) [x] 1 (light) [] 1 (<10 min) [] 1 (1x/week) [x] 2 (3-5x/week) [x] 2 (moderate) [] 2 (10-20 min) [x] 2 (2x/week) [] 3 (daily) [] 3 (moderately hard) [] 4 (very hard) [] 3 (20-30 min) [x] 4 (>30 min) [] 3 (3-4x/week) Patient's past medical history was reviewed in detail and barriers to weight loss were identified and discussed. Past efforts at weight reduction on their own as well as under physician supervision were documented and discussed. I advised patient to continue routine care with their Primary Care Provider. Nutritional recommendations and goals were reviewed including Calories:[id number] daily adjusted for exercise calories burnt, Protein:>100 g daily, Net carbs (total carb - fiber) of 50-75g per day. Start to keep a food journal and bring into next visit in 2 weeks for review. Practice the behavioral modification technique of mindful eating. Take one MVI daily and 2000mg fish oil daily. Take other medications and supplements as directed. Get remaining labs- A1c for diabetes screening due to family history. Start Saxenda. Denies family or personal history of pancreatitis, MTC, or MEN 2. Discussed common side effects of nausea, diarrhea, vomiting, constipation, stomach pain, headache, fatigue, upset stomach, dizziness, feeling bloated, belching, gas, stomach flu, heartburn. First injection of Saxenda 0.6mg was administered in the office today LUQ of periumbilical area, no complications. Sample pen provided to patient along with content regarding use of the pen, dosing schedule, savings opportunities, and helpful tips. Vitamin D deficiency 11/04/2018 Assessment & Plan (04/07/2025 9:09 AM EDT): S/p LSG. Con't OTC supplement. She is unsure the strength, advised her to take 2,000 ius daily. Vitamin B deficiency 11/04/2018 Overview (01/08/2025): Problem Code: E53.9; Problem Code Type: ICD-10; Seasonal allergies Fatigue Assessment & Plan (01/08/2025 1:20 PM EDT): Improving with weight reduction and b-12 injection. B-12 administered in office today. Assessment & Plan (02/14/2023 11:50 AM EDT): Improving with b-12 injection and weight reduction. B-12 injection admisitered in office today. Reassess next visit. Lung nodules Overview (01/28/2019): on preop CXR, benign granulomas on CT 01/27/19 Resolved Problems Problem Noted Date Diagnosed Date Resolved Date Overweight with body mass in dex (BMI) of 29 to 29.9 in adult 04/16/2023 04/16/2023 Obesity, Class III, BMI 40-4 9.9 (morbid obesity) 02/11/2019 03/05/2019 Overview (02/11/2019): Added automatically from request for surgery [id number] Dyspepsia 08/11/2021 Dyspnea on exertion 12/20/19 23 Overview (08/11/2021): Occasional, no other symptoms associated Heartburn 08/11/2021 Overview (08/11/2021): prn PRAKASH, denies prior eval Resolved after MBS H. pylori infection 08/11/19 22 Overview (08/15/2018): (+)UBT 08/2018 - Prevak RX Encounters Date Type Department Care Team Description 07/06/2025 10:00 AM EST Telemedicine [facility] WE[facility]NAG[facility] [address] [place] [address] Carmen Dumont, GARLAND MACHINE OPERATOR Overweight (BMI 25.0-29.9) (Primary Dx); Nutritional counseling from Last 3 Months Immunizations Immunization Administration Dates Next Due COVID-19 (UNSPECIFIED) 05/06/2024 Influenza Split Preservative Free ID 05/06/2024 Family History Medical History Relation Name Comments Arthritis Father Amador Chance Colon polyps Father Amador Chance Diabetes Father Amador Chance Heart disease Father Amador Chance Hypertension Father Amador Chance Other Father Amador Chance Breast cancer Maternal Aunt Cancer Maternal Grandmother Reena nate Hypertension Maternal Grandmother Reena nate Lung cancer Maternal Grandmother Reena nate Obesity Maternal Grandmother Reena nate Arthritis Mother Delisa Chance Breast cancer Mother Delisa Chance Cancer Mother Delisa Chance Breast Cancer Cancer Paternal Grandfather Alena Lung cancer Paternal Grandfather Alena Relation Name Status Comments Father Amador Chance covid 2020-de ath Maternal Aunt Maternal Grandmother Reena nate Mother Delisa Chance Paternal Grandfather Alena Social History Tobacco Use Types Packs/Day Years Used Date Smoking Tobacco: Never Passive Smoke Exposure: Never Smokeless Tobacco: Never Tobacco Cessation:Counseling Given: Not Answered Alcohol Use Standard Drinks/Week Comments Yes 0 [...] Pulse 79 07/06/2025 10:00 AM EST Temperature 37.1 C (98.7 F) 04/16/2023 2:10 PM EDT Respiratory Rate 18 01/08/2025 12:29 PM EDT Oxygen Saturation 99% 07/06/2025 10:00 AM EST Inhaled Oxygen Concentration - - Weight 73 kg (161 lb) 07/06/2025 10:00 AM EST Height 162.6 cm (5' 4 ) 07/06/2025 10:00 AM EST Body Mass Index 27.64 07/06/2025 10:00 AM EST Plan of Treatment Health Maintenance Due Date Last Done Comments Annual Gynecologic Pelvic an d Breast Exam 1974 PAP SMEAR 1995 MAMMOGRAM 01/12/2017 01/12/2015, 11/21/2013 ANNUAL PHYSICAL 08/08/2018 HEPATITIS C SCREENING 08/08/2018 COLOGUARD 2019 COLON CANCER SCREENING 5 YEA R SIGMOIDOSCOPY 2019 COLONOSCOPY 2019 [address] CANCER SCREENING 2019 CT COLONOGRAPHY 2019 FECAL OCCULT BLOOD TEST 2019 FIT Testing (1 year) 2019 Pneumococcal Vaccine 50+ (1 of 1 - PCV) 02/16/2024 ZOSTER VACCINE (1 of 2) 02/16/2024 LIPID PANEL 02/27/2026 02/27/2025, 11/0 09/2021, 08/08/2018 TDAP/TD VACCINES (2 - Td or Tdap) 08/16/2034 025, 11/26/2018 INFLUENZA VACCINE Completed 05/14/2025, , 05/06/2024, Additional history exists Medical Devices Implanted Type Area Custody Officer Device Identifier Shelf Expiration Date Model / Serial / Lot Reload Stplr Signia Tristaple 2.0 Pga 60mm Art Xthick Blk - [id number] Implanted:Qty : 1 on 02/18/2019 by Penny Cordon MD at [facility] Implant [facility] 08/05/2021 [id number] XT / / [id number] Reload Stplr Signia Tristaple 2.0 Pga 60mm Art /Thk Prp - [id number] Implanted:Qty : 2 on 02/18/2019 by Penny Cordon MD at [facility] Implant COVIDIEN 10/03/2021 [id number] MT / / [id number] Reload Stplr Signia Tristaple 2.0 Pga 45mm Art /Birgit Prp - [id number] Implanted:Qty : 1 on 02/18/2019 by Penny Cordon MD at [facility] Implant N/A: Abdomen COVIDIEN 06/05/2021 [id number] MT / / [id number] Reload Stplr Signia Tristaple 2.0 Pga 60mm Art /Birgit Prp - [id number] Implanted:Qty : 1 on 02/18/2019 by Penny Cordon MD at [facility] Implant N/A: Abdomen COVIDIEN 10/03/2021 [id number] MT / / [id number] Reload Stplr Signia Tristaple 2.0 Pga 45mm Art /Birgit Prp - [id number] Implanted:Qty : 1 on 02/18/2019 by Penny Cordon MD at [facility] Implant N/A: Abdomen COVIDIEN 08/05/2021 [id number] MT / / [id number] Sealant Fibrin Tisseel Fz 4ml - [id number] Implanted:Qty : 1 on 02/18/2019 by Penny Cordon MD at [facility] Implant N/A: Abdomen PENDING SALE TO [facility] 08/05/2020 [id number] / / [id number] Procedures Procedure Name Priority Date/Time Associated Diagnosis Comments LIPID PANEL Routine 02/27/2025 9:13 AM EDT MAMMO SCREENING BILATERAL W CAD Routine 01/12/2015 3:10 PM EDT from Last 3 Months or Most Recently Relevant to Health Maintenance Results * (ABNORMAL) Lipid Panel (02/27/2025 9:13 AM EDT) Total Cholesterol 171 0 - 200 mg/dL [facility] Comment: Cholesterol Reference Ranges (U.S. Department of Health and Human Services ATP III Classifications) Desirable <200 mg/dL Borderline High 200-239 mg/dL High Risk >240 mg/dL Triglyceride Reference Ranges (U.S. Department of Health and Human Services ATP III Classifications) Normal <150 mg/dL Borderline High 150-199 mg/dL High 200-499 mg/dL Very High >500 mg/dL HDL Reference Ranges (U.S. Department of Health and Human Services ATP III Classifications) Low <40 mg/dl (major risk factor for CHD) High >60 mg/dl ('negative' risk factor for CHD) LDL Reference Ranges (U.S. Department of Health and Human Services ATP III Classifications) Optimal <100 mg/dL Near Optimal 100-129 mg/dL Borderline High 130-159 mg/dL High 160-189 mg/dL Very High >189 mg/dL LDL is calculated using the NIH LDL-C calculation. Triglycerides 49 0 - 150 mg/dL [facility] HDL Cholesterol 59 40 - 60 mg/dL [facility] VLDL Cholesterol Servando 10 5 - 40 mg/dL [facility] LDL Chol Calc (NIH) 102(H) 0 - 100 mg/dL [facility] 02/27/2025 9:13 AM EDT 02/27/2025 Narrative [facility] (AMBULATORY) - 02/28/2025 6:09 AM EDT Performed at: [address] [place] [id number] Transcriptionist: Terrell Mendiola MD, Phone: [phone] Patient Fasting: N Carmen Dumont APRN LAB BLOOD ORDERABLES Final Result Performing Organization Address City/State/[facility] Co de Phone Number [facility] (AMBULATORY) [address] [place] [address], [facility] [address] [place] [address], * MAMMOGRAPHY SCREENING BILATERAL (01/12/2015 3:10 PM EDT) Anatomical Region Laterality Modality Breast Bilateral Mammography 01/12/2015 3:10 PM EDT Narrative 01/13/2015 12:53 PM EDT HISTORY: Screening Mammography. Low Dose full field Digital Breast Tomosynthesis examination was performed with 2D and 3D acquisitions. Examination is compared to prior examination dating back to 01/27/2010. Examination is read in conjunction with computer aided detection. FINDINGS: There are scattered areas of fibroglandular density. No suspicious masses, microcalcifications or areas of architectural distortion are present. IMPRESSION- Negative bilateral mammogram. RECOMMENDATION: Continue annual screening mammography. BI-RADS CATEGORY I, NEGATIVE. CAD was utilized. The standard false-negative rate of mammography is between 10% and 25%. Complex patterns or increased breast density will markedly elevate the false-negative rate of mammography. A letter, in lay terminology, with the results of this exam will be mailed to the patient. Reading RadiologistMeaghan YARBROUGH Releasing Radiologist- TEJA YARBROUGH Released Date Time- 01/13/15 1255 Stockholder- S.B. Cristian Paiz MD IMG MAMMOGRAPHY ORDERABLES F inal Result from Last 3 Months or Most Recently Relevant to Health Maintenance Insurance Member Subscriber Plan / Payer (Ef fective 2024-Present) Name:Shante Adam Relation to Subscriber:Self Name:hSante Adam Payer ID:[id number] (NAIC) Type:Not on file Address: [facility] [address] [place] [id number] Advance Directives * CPR (Attempt to Resuscitate) (Latest Code Status on File) Date Activated Date Inactivated Comments 02/18/2019 3:35 PM 02/19/2019 9:13 PM Question Answer Comments Code Status (Patient has no pulse and is not breathing): CPR (Attempt to Resuscitate) Medical Interventions (Patie nt has pulse or is breathing): Full Level Of Support Discussed With: Patient Care Teams Steam Tunnel Feeder Relationship Specialty Start Date End Date Gabo Mo MD [address] [place] [address] [place] [address] PCP - General Family Medicine 01/08/25
--- OUTSIDE RECORDS SUMMARY | 2025-07-27 07:57 | XMS_ITS | Encounter Summary ---
[facility] Address [address] [place] [address] Care Team Providers Care E Merchant Name Role Phone Gabo Mo MD Primary Care Provider [phone] Reason for Visit * Reason Onset Date Comments Med Refill 05/23/2022 Encounter Details Date Type Department Care Team (Late st Contact Info) Description 05/23/2022 Refill [facility] [address] [place] [address] Carmen Dumont, PRESIDENT CELEBRITY ACQUISTION [address] [place] [address] Class 2 obesity due to excess calories without serious comorbidity with body mass index (BMI) of 37.0 to 37.9 in adult Social History Tobacco Use Types Packs/Day Years Used Date Smoking Tobacco: Never Smokeless Tobacco: Never Alcohol Use Standard Drinks/Week Comments Yes 0 (1 standard drink = 0.6 oz pur e alcohol) occ Comments No Sex and Gender Information Value Date Recorded Sex Assigned at Female 01/01/2025 11:36 AM EDT Legal Sex Female 12:13 PM EDT Gender Identity Not on file Sexual Orientation Not on file documented as of this encounter Miscellaneous Notes * Telephone Encounter - Yaneth Bell MA - 05/24/2022 1:29 PM EDT Rx Refill Note Requested Prescriptions Pending Prescriptions Disp Refills ??? Phentermine HCl (Lomaira) 8 MG tablet 90 each 0 Sig: Take 8 mg by mouth 3 (Three) Times a Day. As directed Last office visit with prescribing clinician: 04/27/22 Next office visit with prescribing clinician: 06/07/2022 Yaneth Bell MA 05/24/22, 13:29 EDT documented in this encounter Plan of Treatment Not on file documented as of this encounter Visit Diagnoses Diagnosis Class 2 obesity due to excess calories without serious comorbidity with body mass index (BMI) of 37.0 to 37.9 in adult documented in this encounter Care Teams E Merchant Relationship Specialty Start Date End Date Gabo Mo MD [address] [place] [address] PCP - General Family Medicine 01/08/25 documented as of this encounter
--- OUTSIDE RECORDS SUMMARY | 2025-07-27 07:57 | XMS_ITS | Continuity of Care Document ---
Author Organization [employer] [facility] Address [address] [place] [address] Care Team Providers Care Refrigerator Mover Name Role Phone JOSELUIS HEDRICK Primary Care Provider Assessment No assessment recorded. Plan of Treatment Reminders Order Date Submit Date Provider Last Modified By Organization Details Last Modified Time Details Appointments None record ed. Lab None record ed. Referral None record ed. Procedures None record ed. Surgeries None record ed. Imaging None record ed. Medication Orders None record ed. Patient TargetsNo targets recorded. Patient InstructionsNo instructions recorded. Reason for Referral None Reported. Problems Name Problem SNOMED Code Status Onset Date Resolution Date Notes Provider Name and Address Organization Details Recorded Time Acute sinusiti s 90354017 Completed 201808/30/2018 Problem Code: J01.90; Problem Code Type: ICD-10; Jazzmine Galo, [address] [place], [address] , [employer]. 5 11:10:07 Vitamin B deficien cy 49667142 Active 2018 Problem Code: E53.9; Problem Code Type: ICD-10; Not Available [employer] 2 21:27:42 Vitamin D deficien cy 47745621 Active 2018 Problem Code: E55.9; Problem Code Type: ICD-10; Not Available [employer] 2 21:27:42 Acute non-supp urative serous otitis media 976561723 Active 2018 Problem Code: H65.02; Problem Code Type: ICD-10; Not Available [facility] 2 21:27:43 Body mass index 30+ - obesity 155723210 Active 2018 Problem Code: Z68.37; Problem Code Type: ICD-10; Not Available [facility] 2 21:27:43 Pain in throat 842892757 Active 2023 Marissa cody, [employer] 4 09:11:15 Insomnia 740175766 Active 2024 Jazzmine Galo, HEALTHCARE FACILITY ADMINISTRATOR [address] [place], [address] , [employer] 5 17:12:56 Body mass index 25-29 - overweig ht 470120548 Active 2024 Jazzmine Galo, HEALTHCARE FACILITY ADMINISTRATOR [address] [place], [address] , [employer] 5 17:13:02 Acute sinusiti s 64187726 Active 2024 Problem Code: J01.90; Problem Code Type: ICD-10; Jazzmine Galo, HEALTHCARE FACILITY ADMINISTRATOR [address] [place], [address] , [employer] 5 11:10:07 Problem Notes None recorded. Procedures Surgical History Date Name Laterality Status Provider Name and Address Organization Details Recorded Time 06/18/20 23 Most Recent Mammogram completed GLORIA WYNN [employer] 12/23/2024 15:29:19 08/13/19 19 cholecystectomy completed Not Available [facility] 04/11/2022 22:56:05 08/13/19 19 section completed Not Available [facility] 04/11/2022 22:56:05 08/13/19 19 tympanostomy completed Not Available [facility] 04/11/2022 22:56:05 Imaging Results None recorded. Procedure Notes None recorded. Medical Equipment None Reported. Allergies Allergen ID Allergen Name Allergen Category Reaction Reaction Severity Criticality Documentation Date Start Date Code Code System Note Provider Name and Address Organization Details Recorded Time 53737 Non-stero idal anti-infl ammatory agent (substanc e) medicatio n Not available Not available Not available 04/11/2022 39017 5008 SNOMED unabl e to have after weigh t loss surge ry Aller gyCod e: ''; Aller gyNam e: 'NSAI DS (Non- Stero idal Anti- Infla mmato ry Drug) '; Aller gyCon ceptT ype: ''; Not Available [facility] 22:58:36 Medications Name Sig Start Date [...] tablet(s) by mouth daily for 10 days 12/09 completed Not Available Not Available Not Available [...] 2nd Gen Pen Needle 32 gauge x USE DIRECTED active Not Available Not Available [...] Not Available Not Available Not Available Vitals None Recorded Social History Question Answer Notes LastModified by Organizat ion Details LastModified Time Tobacco Smoking Status Never Smoker SocialHis toryQuest ion: 'Tobacco/ Alcohol/S upplement s'; SocialHis toryRespo nse: 'Never Smoker'; Not Available [facility] 04/11/2022 23:01:59 Is Your Home [...] Functional Status Question Answer Note LastModified by [facility] Details LastModified Time Do you use any illicit or recreational drugs? No Information not available 12/17/2023 Do you or have you ever used any other forms of tobacco or nicotine? No [email or web address] Information not available 05/08/2022 What is your level of alcohol consumption? None [email or web address] Information not available 05/08/2022 Are you currently [...] trivalent, PF 5 completed Jazzmine Galo APRN [address] [place] [address], [address], [employer] [employer] 05/16/2025 08:30:05 Influenza, split virus, quadrivalent, preservative 8 completed Sarah cody, [employer] [employer]. 03/26/2024 08:39:11 Influenza, recombinant, quadrivalent, PF 0 completed Sarah cody, [employer], [employer]. 03/26/2024 08:39:11 COVID-19, mRNA, LNP-S, PF, 100 mcg/0.5mL dose or 50 mcg/0.25mL dose 1 completed Sarah cody [employer], [employer]. 03/26/2024 08:39:11 COVID-19, mRNA, LNP-S, PF, 100 mcg/0.5mL dose or 50 mcg/0.25mL dose 1 completed Sarah cody, [employer], [employer]. 03/26/2024 08:39:11 COVID-19, mRNA, LNP-S, PF, 100 mcg/0.5mL dose or 50 mcg/0.25mL dose 1 completed Sarah cody, [employer], [employer]. 03/26/2024 08:39:11 COVID-19, mRNA, LNP-S, bivalent, PF, 50 mcg/0.5 mL or 25mcg/0.25 mL dose 2 completed Sarah cody, [employer] 03/26/2024 08:39:11 Td (adult) 9 completed Sarah cody, [employer] 03/26/2024 08:39:11 Hep A, adult 5 completed Sarah Cruz null, [employer] 03/26/2024 08:39:12 Influenza, split virus, quadrivalent, PF 2 completed Sarah Cruz null, [employer] 03/26/2024 08:39:12 influenza nasal, unspecified formulation 4 completed GLORIA WYNN null, [employer] 06/24/2024 14:01:57 SARS-COV-2 (COVID-19) vaccine, UNSPECIFIED 4 completed GLORIA ZEHRANEAR null, [employer] 06/24/2024 14:02:20 Influenza, split virus, quadrivalent, PF 3 completed Not Available [facility] 05/14/2025 09:09:44 Tdap 5 completed Not Available [facility] 05/14/2025 09:09:44 Past Encounters Encounter ID Performer Location Encounter Start Date Encounter Closed Date Diagnosis/Indication Diagnosis SNOMED-CT Code Diagnosis ICD10 Code Diagnosis IMO Codes Diagnosis Note [id number] Jazzmine Galo APRN [address] [address] 05/14/2025 09:07:43 05/14/2025 09:13:02 Influenza vaccination given [id number] 9109 Z23 [id number] Health Concerns Section Related Observation LastModified by Organization Detai ls LastModified Time None Recorded Concern Status LastModified by Organization Details LastModified Time None Recorded Payers Encounter Date Sequence Insurance Name Policy Number Policy Jones Covered Member ID Jones Member ID Guarantor Name 05/14/2025 1 [place] [employer] [place] [id number] Shante Adam [id number] Shante Adma OBGyn Episode No OBEpisode recorded.
--- OUTSIDE RECORDS SUMMARY | 2025-07-27 07:57 | XMS_ITS | Encounter Summary ---
Author Organization [facility] yste Address [address] [place] [address] Care Team Providers Care Cutter Inspector Name Role Phone Gabo Mo MD Primary Care Provider [phone]- [phone] Reason for Visit * Reason Comments Med Refill Encounter Details Date Type Department Care Team ([facility] st Contact Info) Description 12/06/2023 Refill [facility] WEIGHT [facility]NAGEMENT [address] [place] [address] Carmen Dumont, CLINICAL DATA PROGRAMMER [address] [place] [address] Overweight (BMI 25.0-29.9) Social History Tobacco Use Types Packs/Day Years [...] on file documented as of this encounter Plan of Treatment Not on file documented as of this encounter Visit Diagnoses Diagnosis Overweight (BMI 25.0-29.9) Overweight documented in this encounter Care Teams Cutter Inspector Relationship Specialty Start Date End Date Gabo Mo MD [address] [place] [address] [place] [address] PCP - General Family Medicine 01/08/25 documented as of this encounter
--- OUTSIDE RECORDS SUMMARY | 2025-07-27 07:57 | XMS_ITS | Encounter Summary ---
Author Organization [facility] Address [address] [place] [address] Care Team Providers Care Mud Mill Tender Name Role Phone Gabo Mo MD Primary Care Provider [phone]- [phone] Encounter Details Date Type Department Care Team (Late st Contact Info) Description 03/02/2025 Results Follow-Up [facility] WEIGHT MANAGEMENT [address] [place] [address] Carmen Dumont, WAREHOUSE ORDER SELECTOR [address] [place] [address] Social History Tobacco Use Types Packs/Day Years [...] documented as of this encounter Visit Diagnoses Not on filedocumented in this encounter Care Teams Mud Mill Tender Relationship Specialty Start Date End Date Gabo Mo MD [address] [place] [address] PCP - General Family Medicine 01/08/25 documented as of this encounter
--- NOTE | 2025-07-27 08:00 | MM_ITS ---
PROCEDURE INFORMATION: Exam: MG Bilateral Screening 3D Mammography Exam date and time: 07/27/2025 8:05 AM Age: 50 years old Clinical indication: Screening examination TECHNIQUE: Imaging protocol: Bilateral Screening tomosynthesis and 2D mammography including computer-aided detection (CAD) when performed. COMPARISON: 1. MG MM DIG SCREENING MAMM BI W/CAD 07/14/2024 2:56 PM 2. MG MM DIG SCREENING MAMM BI W/CAD 06/18/2023 4:00 PM FINDINGS: MAMMOGRAPHY: Breast composition: There are scattered areas of fibroglandular density. Mass: None. Architectural distortion: None. Calcifications: No suspicious calcifications. Asymmetric density: None. Skin thickening: None. Axillary adenopathy: None. IMPRESSION: No mammographic evidence of malignancy. Annual screening is recommended unless otherwise clinically indicated. ASSESSMENT: BI-RADS Category 1: Negative.
== END 2025-07-27 23:59 | disposition home or self-care (01) ==
LOC: RAD 07:54
PROVIDERS: PCP Family Medicine; Visit Provider Family Medicine
DX: Z12.31 Encounter for screening mammogram for malignant neoplasm of breast (principal); R92.323 Mammographic fibroglandular density, bilateral breasts
CPT/HCPCS: 77063; 77067